=== PATIENT | male | born 1945 | race Hispanic/Latino ===

== ENCOUNTER 2018-07-06 10:40 | Inpatient (IN) | payer OTHER ==
[2018-07-06 11:49] LABS: Absolute Lymphocytes (CBC) 1.4 K/uL (0.7-4.9); Absolute Monocytes 0.5 K/uL (0.1-1.3); Absolute Neutrophil 5.7 K/uL (1.8-8.0); Basophils % 0.5 % (0-1.3); Hematocrit 40.3 % (39.6-49.0); Lymphocytes % 18.4 % (15.3-44.8); MPV 10.5 fL (7.6-11.3); Monocytes % 6.2 % (3.3-12.3); RBC Red Blood Cell Count 4.54 M/uL (4.33-5.43)
--- NOTE | 2018-07-06 11:53 | RAD REPORT ---
EXAM DESCRIPTION: CT - Head Brain Wo Cont - 07/06/2018 11:41 am CLINICAL HISTORY: aphasia COMPARISON: 2010 TECHNIQUE: Computed axial tomography of the head was obtained. IV contrast was not requested. All CT scans are performed using dose optimization technique as appropriate and may include automated exposure control or mA/KV adjustment according to patient size. FINDINGS: An intracranial bleed is not seen . The ventricles are normal in caliber. No extra-axial fluid collection is noted. 1 centimeter low-density area has developed within left aspect of the hema. 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 Mild low-density areas within periventricular and deep white matter likely ischemic changes secondary small vessel disease Fluid within the sinuses/ mastoids is not seen. IMPRESSION: 1 centimeter low-density area within the left aspect of the hema consistent with an infa rct. Age is indeterminate. If clinically indicated further evaluation with MRI could be obtained
[2018-07-06 12:00] LABS: BUN Blood Urea Nitrogen 18 mg/dL (7-18); Bicarbonate 30 mmol/L (21-32); Glucose Level 219 mg/dL (74-106); Potassium 5.1 mmol/L (3.5-5.1); Sodium Level 141 mmol/L (136-145); Troponin (Emerg Dept Use Only) < 0.02 ng/mL (0.0-0.045)
[2018-07-06] MEDS ORDERED: NA CHLORIDE 0.9% 500 ML ONE (12:02)
[2018-07-06 12:04] LABS: Magnesium 1.4 mg/dL (1.8-2.4)
--- NOTE | 2018-07-06 12:47 | ER ---
Nurse's Notes [facility] Name: Dajuan Estrada Age: 73 yrs Sex: Male : 1945 Arrival Date: 07/06/2018 Time: 10:44 Bed 18 Private MD: Jadon Jackson E Diagnosis: Subacute ischemic stroke Presentation: 07/06 10:49 Presenting complaint: Patient states: On Monday morning, noticed some numbness to left sg side of face and had trouble speaking with weakness reports the symptoms improved, but feeling weak still this morning. Transition of care: patient was not received from another setting of care. No acute neurological deficit is noted. Pre-hospital glucose is not applicable to this patient. Onset of symptoms was July 06, 2018. Risk Assessment: Do you want to hurt yourself or someone else? Patient reports no desire to harm self or others. Initial Sepsis Screen: Does the patient meet any 2 criteria? No. Patient's initial sepsis screen is negative. Does the patient have a suspected source of infection? No. Patient's initial sepsis screen is negative. Care prior to arrival: None. 10:49 Method Of Arrival: Ambulatory sg 10:49 Acuity: DARIA 3 sg Triage Assessment: 10:49 The onset of the patients symptoms was more than six hours ago. General: Appears in no sg apparent distress. comfortable, well groomed, well developed, well nourished, Behavior is calm, cooperative, appropriate for age. Pain: Denies pain. Neuro: Level of Consciousness is awake, alert, obeys commands, Oriented to person, place, time, situation, Industrial Ecology Technician are equal bilaterally Moves all extremities. Full function Gait is steady, Speech is normal, Facial symmetry appears normal, Pupils are PERRLA, Reports weakness. Stroke Activation: Symptom onset > 6 hours Physician: Stroke Attending; Name: ; Notified At: ; Arrived At: Physician: Chief Stroke Resident; Name: ; Notified At: ; Arrived At: Physician: Stroke Resident; Name: ; Notified At: ; Arrived At: Physician: ED Attending; Name: ; Notified At: ; Arrived At: Physician: ED Resident; Name: ; Notified At: ; Arrived At: Historical: - Allergies: 10:54 No Known Allergies; sg - Home Meds: 10:54 lisinopril Oral [Active]; Metformin Oral [Active]; atorvastatin oral oral [Active]; sg - PMHx: 10:54 Diabetes - NIDDM; High Cholesterol; Hypertension; sg - PSHx: 10:54 prostate; sg - Immunization history:: Adult Immunizations up to date. - Social history:: Smoking status: Patient/guardian denies using tobacco. - Ebola Screening: : Patient negative for fever greater than or equal to 101.5 degrees Fahrenheit, and additional compatible Ebola Virus Disease symptoms Patient denies exposure to infectious person Patient denies travel to an Ebola-affected area in the 21 days before illness onset No symptoms or risks identified at this time. - Family history:: not pertinent. - Hospitalizations: : No recent hospitalization is reported. Screenin:49 VAN Screening: Arm Drift: Patient shows no arm weakness. Patient is VAN negative. sg 11:00 Abuse screen: Denies threats or abuse. Denies injuries from another. Nutritional jl7 screening: No deficits noted. Tuberculosis screening: No symptoms or risk factors identified. Fall Risk IV access (20 points). Assessment: 11:00 VAN Scoring: Arm Drift: Patients demonstrates NO arm weakness. Patient is VAN Negative. jl7 The patient has not been NPO before screening. The patient is currently on the following diet: Regular The patient is alert, and able to follow commands. The patient does not exhibit slurred or garbled speech. The patient is not exhibiting difficulty speaking. The patient does not exhibit difficulty understanding words. The patient is able to swallow own secretions with no drooling or need for suction. Patient tolerated one teaspoon of water. No drooling, immediate coughing, gurgling, or clearing of the throat was noted. The patient tolerated 90mL of water. No drooling, immediate coughing, gurgling, or clearing of the throat was noted. The patient passed the bedside swallow screening. Oral medications may be given as ordered. Contact Physician for further diet orders. Provider notified of bedside swallow screening results: Miguel Angel Delgadillo MD. T-PA (Activase) Screening: Contraindications: Patient reports onset of signs and symptoms of stroke greater than 6 hours ago:. 11:00 General: See triage assessment. jl7 12:00 Reassessment: Patient appears in no apparent distress at this time. No changes from jl7 previously documented assessment. Patient and/or family updated on plan of care and expected duration. Pain level reassessed. Patient is alert, oriented x 3, equal unlabored respirations, skin warm/dry/pink. Patient denies pain at this time. 13:39 Reassessment: Patient appears in no apparent distress at this time. Patient and/or jl7 family updated on plan of care and expected duration. Pain level reassessed. Patient is alert, oriented x 3, equal unlabored respirations, skin warm/dry/pink. pt returned from radiology. 15:00 Reassessment: Patient appears in no apparent distress at this time. No changes from jl7 previously documented assessment. Patient and/or family updated on plan of care and expected duration. Pain level reassessed. Patient is alert, oriented x 3, equal unlabored respirations, skin warm/dry/pink. Patient denies pain at this time. 15:10 Reassessment: Dr. Cortez at bedside discussing plan of care. jl7 Vital Signs: 10:51 BP 150 / 66; Pulse 87; Resp 17; Temp 98.6; Pulse Ox 98% ; Weight 77.11 kg; Height 5 ft. sg 8 in. (172.72 cm); Pain 0/10; 13:39 BP 184 / 77; Pulse 59; Resp 16; Pulse Ox 98% ; Pain 0/10; jl7 14:12 BP 177 / 94; Pulse 64; Resp 16 S; Pulse Ox 100% on R/A; jl7 15:10 BP 163 / 84; Pulse 60; Resp 16 S; Pulse Ox 100% on R/A; jl7 10:51 Body Mass Index 25.85 (77.11 kg, 172.72 cm) sg NIH Stroke Scale Scores: 11:00 NIHSS Score: 0 [facility] ED Course: 10:44 Patient arrived in ED. mr 10:45 Jadon Jackson MD is Private Physician. mr 10:49 Arm band placed on. sg 10:51 Triage completed. sg 11:00 Patient has correct armband on for positive identification. Placed in gown. Bed in low jl7 position. Call light in reach. Side rails up X 1. monitoring tech on. Pulse ox on. NIBP on. Warm blanket given. 11:19 Elias Slater, ANIL is Primary Nurse. jl7 11:19 Miguel Angel Delgadillo MD is Attending Physician. rn 11:40 CT Head Brain wo Cont In Process Unspecified. EDMS 11:59 EKG done, by eeg tech. reviewed by Miguel Angel Delgadillo MD. at1 12:46 Omaira Cortez MD is Hospitalizing Provider. rn 13:13 MRA Neck W/Wo Cont In Process Unspecified. EDMS 13:13 Brain W/Wo Cont In Process Unspecified. EDMS 13:14 MRA Head Wo Cont In Process Unspecified. EDMS 15:25 No provider procedures requiring assistance completed. Patient admitted, IV remains in 7 place. intact, No redness/swelling at site. Administered Medications: 11:50 Drug: NS 0.9% 500 ml Route: IV; Rate: bolus; Site: right antecubital; jl7 12:30 Follow up: IV Status: Completed infusion; IV Intake: 500ml jl7 13:30 Drug: Magnesium Sulfate 1 grams Route: IVPB; Infused Over: 1 hrs; Site: right jl7 antecubital; 14:43 Follow up: Response: No adverse reaction; IV Status: Completed infusion jl7 13:46 Drug: Aspirin Chewable Tablet 324 mg Route: PO; jl7 14:13 Follow up: Response: No adverse reaction jl Intake: 12:30 IV: 500ml; Total: 500ml. jl Outcome: 12:46 Decision to Hospitalize by Provider. rn 15:25 Admitted to Med/surg accompanied by tech, family with patient, via wheelchair, room [facility] 419, with chart, Report called to ANIL Matute 15:25 Condition: stable 15:25 Discharge instructions given to patient, family, Instructed on the need for admit, Demonstrated understanding of instructions. 15:26 Patient left the ED. [facility] NIH Stroke Scale - NIH Stroke Score Date: 07/06/2018 Time: 11:00 Total Score = 0 1a. Level of Consciousness (LOC) - 0(Alert) 1b. Level of Consciousness (LOC) (Year \T\ Age) - 0(Both) 1c. LOC Commands (Open \T\ Closes Eyes/Jig Operator) - 0(Both) 2. Best Gaze (Lateral Gaze Paresis) - 0(Normal) 3. Visual Field Loss - 0(No visual loss) 4. Facial Palsy - 0(Normal) 5a. Left Arm: Motor (10-second hold) - 0(No drift) 5b. Right Arm: Motor (10-second hold) - 0(No drift) 6a. Left Leg: Motor (5-second hold - always test supine) - 0(No drift) 6b. Right Leg: Motor (5-second hold - always test supine) - 0(No drift) 7. Limb Ataxia (finger/nose \T\ heel/reed - test with eyes open) - 0(Absent) 8. Sensory Loss (pinprick arms/legs/face) - 0(Normal) 9. Best Language: Aphasia (description/naming/reading) - 0(No aphasia) 10. Dysarthria (speech clarity - read or repeat words) - 0(Normal) 11. Extinction and Inattention (visual/tactile/auditory/spatial/personal) - 0(No abnormality) Initials: jl7 Signatures: Dispatcher [employer] Darinel Yoo, RN Azul Mayberry Roman, MD MD rn Gonzales, Amanda, injection molding machine setter EKG Tat1 Elias Slater RN RN jl7
--- NOTE | 2018-07-06 12:48 | EDPHYS ---
Physician Documentation [facility] Name: Dajuan Estrada Age: 73 yrs Sex: Male : 1945 Arrival Date: 07/06/2018 Time: 10:44 Bed 18 Private MD: Jadon Jackson E ED Physician Miguel Angel Delgadillo HPI: 07/06 12:10 This 73 yrs old Male presents to ER via Ambulatory with complaints of Trouble rn Talking, Weakness. 12:10 The patient presents to the emergency department with weakness of the a speech insulator technician higher order brain function problem, difficult walking. Onset: The symptoms/episode began/occurred 5 day(s) ago. Associated signs and symptoms: Pertinent positives: weakness, Pertinent negatives: altered mental status, syncope, double vision, visual field changes, loss of vision. Severity of symptoms: At their worst the symptoms were mild in the emergency department the symptoms are unchanged. The patient has not experienced similar symptoms in the past. Reports Monday began with trouble speaking, trouble walking, lower ext weakness, have improved a little but not gone completely.. Historical: - Allergies: 10:54 No Known Allergies; sg - Home Meds: 10:54 lisinopril Oral [Active]; Metformin Oral [Active]; atorvastatin oral oral [Active]; sg - PMHx: 10:54 Diabetes - NIDDM; High Cholesterol; Hypertension; sg - PSHx: 10:54 prostate; sg - Immunization history:: Adult Immunizations up to date. - Social history:: Smoking status: Patient/guardian denies using tobacco. - Ebola Screening: : Patient negative for fever greater than or equal to 101.5 degrees Fahrenheit, and additional compatible Ebola Virus Disease symptoms Patient denies exposure to infectious person Patient denies travel to an Ebola-affected area in the 21 days before illness onset No symptoms or risks identified at this time. - Family history:: not pertinent. - Hospitalizations: : No recent hospitalization is reported. ROS: 12:10 Constitutional: Negative for fever, chills, and weight loss, Eyes: Negative for injury, rn pain, redness, and discharge, Neck: Negative for injury, pain, and swelling, Cardiovascular: Negative for chest pain, palpitations, and edema, Respiratory: Negative for shortness of breath, cough, wheezing, and pleuritic chest pain, Abdomen/GI: Negative for abdominal pain, nausea, vomiting, diarrhea, and constipation, MS/Extremity: Negative for injury and deformity, Skin: Negative for injury, rash, and discoloration, Neuro: Negative for headache, numbness, tingling, and seizure. Exam: 12:10 Constitutional: This is a well developed, well nourished patient who is awake, alert, rn and in no acute distress. Head/Face: Normocephalic, atraumatic. Eyes: Pupils equal round and reactive to light, extra-ocular motions intact. Lids and lashes normal. Conjunctiva and sclera are non-icteric and not injected. Cornea within normal limits. Periorbital areas with no swelling, redness, or edema. ENT: MMM Cardiovascular: Regular rate and rhythm, No pulse deficits. Respiratory: No increased work of breathing, no retractions or nasal flaring. Abdomen/GI: soft, non-tender MS/ Extremity: Pulses equal, no cyanosis. Neurovascular intact. Full, normal range of motion. Equal circumference. Neuro: Awake and alert, GCS 15, oriented to person, place, time, and situation. Cranial nerves II-XII grossly intact. Motor strength 5/5 in all extremities. Sensory grossly intact. Mild slurred speech, slow and wide based gait. Vital Signs: 10:51 BP 150 / 66; Pulse 87; Resp 17; Temp 98.6; Pulse Ox 98% ; Weight 77.11 kg; Height 5 ft. sg 8 in. (172.72 cm); Pain 0/10; 13:39 BP 184 / 77; Pulse 59; Resp 16; Pulse Ox 98% ; Pain 0/10; jl7 14:12 BP 177 / 94; Pulse 64; Resp 16 S; Pulse Ox 100% on R/A; jl7 15:10 BP 163 / 84; Pulse 60; Resp 16 S; Pulse Ox 100% on R/A; jl7 10:51 Body Mass Index 25.85 (77.11 kg, 172.72 cm) NIH Stroke Scale Scores: 11:00 NIHSS Score: 0 jl7 MDM: 11:20 Patient medically screened. rn 12:45 Data reviewed: vital signs, nurses notes, lab test result(s), EKG, radiologic studies, rn CT scan, and as a result, I will admit patient. Counseling: I had a detailed discussion with the patient and/or guardian regarding: the historical points, exam findings, and any diagnostic results supporting the discharge/admit diagnosis, lab results, radiology results, the need for further work-up and treatment in the hospital. Admission orders: after a detailed discussion of the patient's condition and case, the admit orders are written by me. ED course: Will admit for stroke w/u, ct shows hema lesion, admitted to Dr. Cortez. . 07/06 11:27 Order name: Magnesium; Complete Time: 12: rn 07/06 11:27 Order name: Troponin (emerg Dept Use Only); Complete Time: 12: rn 07/06 11:27 Order name: Basic Metabolic Panel; Complete Time: 12: rn 07/06 11:27 Order name: CBC with Diff; Complete Time: 12: rn 07/06 13:52 Order name: Urine Dipstick--Ancillary (enter results) eb 07/06 14:01 Order name: RPR EDLA 07/06 11:27 Order name: CT Head Brain wo Cont; Complete Time: 12: rn 07/06 12:47 Order name: MRA Neck W/Wo Cont; Complete Time: 13:44 EDLA 07/06 12:47 Order name: Brain W/Wo Cont; Complete Time: 13:44 EDLA 07/06 13:14 Order name: MRA Head Wo Cont; Complete Time: 13:44 EDLA 07/06 14:00 Order name: Carotid Artery Bilateral EDLA 07/06 14:01 Order name: Echo with Doppler EDLA 07/06 14:01 Order name: Sedimentation Rate, W[place]gren [facility] 07/06 11:27 Order name: EKG; Complete Time: 11:27 rn 07/06 11:27 Order name: Accucheck; Complete Time: 12: rn 07/06 11:27 Order name: Cardiac monitoring; Complete Time: 12: rn 07/06 11:27 Order name: EKG - Nurse/Tech; Complete Time: 12: rn 07/06 11:27 Order name: IV Saline Lock; Complete Time: 12: rn 07/06 11:27 Order name: Labs collected and sent; Complete Time: 12: rn 07/06 11:27 Order name: NPO; Complete Time: 12: rn 07/06 11:27 Order name: O2 Per Protocol; Complete Time: 12:07 rn 07/06 14:00 Order name: Occupational Therapy Consult [facility] 07/06 14:00 Order name: CONS Physician Consult [facility] 07/06 14:00 Order name: Physical Therapy Consult [facility] 07/06 14:00 Order name: Speech Therapy Consult [facility] 07/06 14:00 Order name: Heart Healthy [facility] 07/06 11:27 Order name: O2 Sat Monitoring; Complete Time: 12:07 rn Administered Medications: 11:50 Drug: NS 0.9% 500 ml Route: IV; Rate: bolus; Site: right antecubital; jl7 12:30 Follow up: IV Status: Completed infusion; IV Intake: 500ml jl7 13:30 Drug: Magnesium Sulfate 1 grams Route: IVPB; Infused Over: 1 hrs; Site: right jl7 antecubital; 14:43 Follow up: Response: No adverse reaction; IV Status: Completed infusion jl7 13:46 Drug: Aspirin Chewable Tablet 324 mg Route: PO; jl7 14:13 Follow up: Response: No adverse reaction jl7 Disposition: 07/06/18 12:46 Hospitalization ordered by Omaira Cortez for Inpatient Admission. Preliminary diagnosis is Subacute ischemic stroke. - Bed requested for Telemetry/MedSurg (Inpatient). - Status is Inpatient Admission. jl7 - Condition is Stable. - Problem is new. - Symptoms are unchanged. UTI on Admission? No NIH Stroke Scale - NIH Stroke Score Date: 07/06/2018 Time: 11:00 Total Score = 0 1a. Level of Consciousness (LOC) - 0(Alert) 1b. Level of Consciousness (LOC) (Year \T\ Age) - 0(Both) 1c. LOC Commands (Open \T\ Closes Eyes/General Passenger Agent) - 0(Both) 2. Best Gaze (Lateral Gaze Paresis) - 0(Normal) 3. Visual Field Loss - 0(No visual loss) 4. Facial Palsy - 0(Normal) 5a. Left Arm: Motor (10-second hold) - 0(No drift) 5b. Right Arm: Motor (10-second hold) - 0(No drift) 6a. Left Leg: Motor (5-second hold - always test supine) - 0(No drift) 6b. Right Leg: Motor (5-second hold - always test supine) - 0(No drift) 7. Limb Ataxia (finger/nose \T\ heel/reed - test with eyes open) - 0(Absent) 8. Sensory Loss (pinprick arms/legs/face) - 0(Normal) 9. Best Language: Aphasia (description/naming/reading) - 0(No aphasia) 10. Dysarthria (speech clarity - read or repeat words) - 0(Normal) 11. Extinction and Inattention (visual/tactile/auditory/spatial/personal) - 0(No abnormality) Initials: jl7 Signatures: Dispatcher [employer] [facility] Angelia Augustine, RN RN Darinel Evangelista, RN RN Miguel Angel Howell MD MD rn Leal, Jahala, RN RN jl7 Corrections: (The following items were deleted from the chart) 13:13 11:42 Stroke Protocol ordered. [facility] 14:49 12:46 Hospitalization Ordered by Omaira Cortez MD for Inpatient Admission. dw Preliminary diagnosis is Subacute ischemic stroke. Bed requested for Telemetry/MedSurg (Inpatient). Status is Inpatient Admission. Condition is Stable. Problem is new. Symptoms are unchanged. UTI on Admission? No. rn 15:26 14:49 07/06/2018 12:46 Hospitalization Ordered by Omaira Cortez MD for jl7 Inpatient Admission. Preliminary diagnosis is Subacute ischemic stroke. Bed requested for Telemetry/MedSurg (Inpatient). Status is Inpatient Admission. Condition is Stable. Problem is new. Symptoms are unchanged. UTI on Admission? No. dw
--- NOTE | 2018-07-06 13:32 | RAD REPORT ---
EXAM DESCRIPTION: MRI - Brain W/Wo Cont - 07/06/2018 1:22 pm CLINICAL HISTORY: Numbness COMPARISON: July 06, [address] TECHNIQUE: Axial, sagittal, and coronal magnetic images of the brain were obtained. 20 cc MultiHance administered intravenously FINDINGS: A 1.4 centimeter area of abnormal signal within the left aspect of the hema near midline i s compatible with an acute infarction. No abnormal enhancement within the brain is seen. An extra-axial fluid collection is not noted. Mild to moderate signal within periventricular, deep and subcortical white matter likely represent is chemic changes secondary to small vessel disease. Small old lacunar infarcts involve the thalami Right maxillary sinusitis. IMPRESSION: 1.4 centimeter acute infarct left aspect of the hema
[2018-07-06] MEDS ORDERED: ASPIRIN 81 MG CHEWABLE TABLET ONE (13:36)
[2018-07-06] MEDS ORDERED: MAGNESIUM SULFATE 1 gm IVPB 1 GM/100 ML BAG IV ONE (13:36)
--- NOTE | 2018-07-06 13:37 | RAD REPORT ---
EXAM DESCRIPTION: MRI - MRA Head Wo Cont - 07/06/2018 1:22 pm CLINICAL HISTORY: Numbness COMPARISON: None. TECHNIQUE: Magnetic resonance angiogram was performed. 3D MIPS reconstruction performed FINDINGS: The A 1 segment of the right anterior cerebral artery is hypoplastic which is a normal henrique iant. origin of the right posterior cerebral artery. Mild narrowing of branches of the right posterior cerebral artery is seen. Left anterior, left and right middle, left posterior cerebral arteries, basilar artery and distal int ernal carotid artery appear unremarkable without a significant stenosis. . An aneurysm is not displayed. IMPRESSION: Mild narrowing of the branches of the right posterior cerebral artery probably chronic.
--- NOTE | 2018-07-06 13:40 | RAD REPORT ---
EXAM DESCRIPTION: MRI - MRA Neck W/Wo Cont - 07/06/2018 1:20 pm CLINICAL HISTORY: TIA COMPARISON: None. TECHNIQUE: Magnetic resonance angiogram of the neck was performed. 19 cc MultiHance was administered intravenously. 3D MIPS reconstruction performed FINDINGS: Mild plaque is present within the common, internal and external carotid arteries. An aneurysm is not seen. The vertebral arteries are codominant without visualization of an abnormality. IMPRESSION: Mild plaque within the carotid arteries. A significant abnormality is not displayed NASCET criteria used. Mild 0-49% stenosis Moderate 50-69% stenosis Severe 70-99% stenosis
[2018-07-06 14:14] LABS: Urine Blood NEGATIVE (NEG); Urine Glucose NEGATIVE (NEG); Urine Protein NEGATIVE (NEG)
[2018-07-06 15:16] LABS: RPR Titer ND
--- NOTE | 2018-07-06 15:21 | RAD REPORT ---
EXAM DESCRIPTION: USCarotid Artery Bilateral07/06/2018 3:01 pm CLINICAL HISTORY: Numbness COMPARISON: None FINDINGS: The velocity of the right internal carotid artery equals 85 cm/sec. The right ICA/CCA rati o 1.3 The velocity of the left internal carotid artery equals 104 cm/sec. The left ICA/CCA ratio 1.2 Mild plaque is present within the carotid arteries. The vertebral arteries demonstrate antegrade flow IMPRESSION: Mild plaque within the carotid arteries without evidence of a hemodynamically significan t stenosis NASCET criteria used. Mild 0-49% stenosis Moderate 50-69% stenosis Severe 70-99% stenosis
[2018-07-06] MEDS ORDERED: ONDANSETRON 4 MG/2 ML VIAL IV PRN (15:22)
--- NOTE | 2018-07-06 15:30 | P.HP ---
Certification for Inpatient Patient admitted to: Inpatient With expected LOS: >2 Midnights Patient will require the following post-hospital care: None Practitioner: I am a practitioner with admitting privileges, knowledge of patient current condition, hospital course, and medical plan of care. Services: Services provided to patient in accordance with Admission requirements found in Title 42 Section 412.3 of the Code of Federal Regulations Patient History Date of Service: 07/06/18 Primary Care Provider: Dr Jackson History of Present Illness: 73-year-old male with significant past medical history of diabetes, hypertension , previous CVA who presented to the ED complaining of having dysarthria, difficulty writing, and unsteady gait that started about 5 days ago on Monday. Patient stated that he was in his usual state of health until his noticed that he was having difficulty talking and writing sentences. Patient tried to get up from his couch would not able to get up and was having unsteady gait and thus the asked to sit back down. Patient stated that he tried to sleep it off over the weekend however his symptoms did not improve and thus he decided to come to the ER for further workup. Allergies No Known Drug Allergies Allergy (Unverified 03/18/14 17:37) Unknown Home Medications: Lisinopril [Prinivil*] 20 mg PO DAILY 03/15/14 Atorvastatin Calcium 1 tab PO BEDTIME 07/06/18 Metformin HCl 1,000 mg PO BID 07/06/18 Nateglinide [Starlix*] 1 tab PO BID 07/06/18 - Past Medical/Surgical History Diabetic: Yes -: NIDDM -: HTN -: Hyperlipidemia -: sx on left foot after needle pucture -: Willis Cataract sx - Family History Father -: Heart disease - Social History Alcohol use: No CD- Drugs: No Caffeine use: No Review of Systems 10-point ROS is otherwise unremarkable Physical Examination - Physical Exam General: Alert, In no apparent distress HEENT: Atraumatic, PERRLA, Mucous membr. moist/pink, EOMI, Sclerae nonicteric Neck: Supple, 2+ carotid pulse no bruit, No LAD, Without JVD or thyroid abnormality Respiratory: Clear to auscultation bilaterally, Normal air movement Cardiovascular: Regular rate/rhythm, Normal S1 S2 Gastrointestinal: Normal bowel sounds, No tenderness Musculoskeletal: No tenderness Integumentary: No rashes Neurological: Normal speech, Normal strength at 5/5 x4 extr, Normal tone, Abnormal gait Lymphatics: No axilla or inguinal lymphadenopathy - Studies Laboratory Data (last 24 hrs) 07/06/18 11:34: WBC 7.8, Hgb 13.8, Hct 40.3, Plt Count 296 07/06/18 11:34: Sodium 141, Potassium 5.1, BUN 18, Creatinine 1.07, Glucose 219 H, Magnesium 1.4 L* Assessment and Plan - Problems (Diagnosis) (1) Acute CVA (cerebrovascular accident) Current Visit: Yes Status: Acute Plan: Acute Right sided CVA in the hema. Onset of symptoms 5 days ago with Difficulty. -Brain MRI, Neck MRA + for Right Sided CVA in hema -Consulted PT/OT and Speech -neurology consulted. Awaiting reccs -Started ASA, Plavix and lipitor -Will monitor for next 24 to 48 hrs -Possible placement to SNF vs rehab depending on the evaluation (2) HTN (hypertension) Current Visit: Yes Status: Chronic Plan: BP controlled. -Restart Home Lisinopril Qualifiers: Hypertension type: essential hypertension Qualified Code(s): I10 - Essential (primary) hypertension (3) Diabetes Current Visit: Yes Status: Chronic Plan: ISS and accu checks -BS is WNL Qualifiers: Diabetes mellitus type: type 2 Diabetes mellitus complication status: without complication (4) H/O: CVA (cerebrovascular accident) Current Visit: Yes Status: Chronic Plan: h/o CVA in the past without any residual Discharge Plan: Home Plan to discharge in: Greater than 2 days - Advance Directives Does patient have a Living Will: No Does patient have a Durable POA for Healthcare: No - Code Status/Comfort Care Code Status Assessed: Yes Critical Care: No
[2018-07-06] MEDS ORDERED: D50W 25 GM/50 ML SYRINGE IV PRN (15:31)
[2018-07-06] MEDS ORDERED: GLUCAGON 1 MG/VIAL IM PRN (15:31)
[2018-07-06 15:36] VITALS: BMI 25.8
[2018-07-06] MEDS: INSULIN -REGULAR HUMAN 50 UNIT/0.5 ML ML SQ SCH ×2 (16:15→21:39)
[2018-07-06] MEDS: LISINOPRIL 20 MG TAB PO SCH (16:46)
[2018-07-06] MEDS ORDERED: Magnesium Sulfate 2gm IVPB 2 G/50 ML BAG IV ONE (17:00)
--- NOTE | 2018-07-06 17:12 | ECHO ---
HEIGHT: 5 ft 8 in WEIGHT: 170 lb 0 oz DATE OF STUDY: 07/06/[address]: Omaira Cortez MD 2-DIMENSIONAL: YES M.MODE: YES DOPPLER: YES COLOR FLOW: YES TDS: PORTABLE: DEFINITY: BUBBLE STUDY: DIAGNOSIS: ACUTE CVA CARDIAC HISTORY: CATHERIZATION: NO SURGERY: NO PROSTHETIC VALVE: NO PACEMAKER: NO MEASUREMENTS (cm) DIASTOLIC (NORMALS) SYSTOLIC (NORMALS) IVSd 1.0 (0.6-1.2) LA Diam 4.4 (1.9-4.0) LVEF 56% LVIDd 4.1 (3.5-5.7) LVIDs 2.9 (2.0-3.5) %FS 29% LVPWd 1.0 (0.6-1.2) Ao Diam 2.7 (2.0-3.7) 2 DIMENSIONAL ASSESSMENT: RIGHT ATRIUM: NORMAL LEFT ATRIUM: DILATED RIGHT VENTRICLE: NORMAL LEFT VENTRICLE: NORMAL TRICUSPID VALVE: NORMAL MITRAL VALVE: NORMAL PULMONIC VALVE: NORMAL AORTIC VALVE: SCLEROSIS PERICARDIAL EFFUSION: NONE AORTIC ROOT: NORMAL LEFT VENTRICULAR WALL MOTION: NORMAL DOPPLER/COLOR FLOW: MILD AORTIC REGURGITATION, MITRAL REGURGITATION AND TRICUSPID REGURGITATION. NORMAL RIGHT VENTRICULAR SYSTOLIC PRESSURE. NO AORTIC STENOSIS. COMMENTS: NORMAL LEFT VENTRICULAR EJECTION FRACTION. DILATED LEFT ATRIUM. AORTIC SCLEROSIS WITH NO AORTIC STENOSIS. MILD AORTIC REGURGITATION, MITRAL REGURGITATION, AND TRICUSPID REGURGITATION. TECHNOLOGIST: HITESH BELCHER
[2018-07-06 20:55] LABS: RPR (Rapid Plasma Reagin) NON-REACT (NON-REACT)
[2018-07-06] MEDS: ATORVASTATIN 40 MG TAB PO SCH (21:41)
[2018-07-07 06:01] LABS: Absolute Lymphocytes (CBC) 1.1 K/uL (0.7-4.9); Absolute Monocytes 0.6 K/uL (0.1-1.3); Absolute Neutrophil 5.1 K/uL (1.8-8.0); Basophils % 0.6 % (0-1.3); Hematocrit 35.3 % (39.6-49.0); Lymphocytes % 15.9 % (15.3-44.8); MPV 10.3 fL (7.6-11.3)
[2018-07-07 06:29] LABS: Albumin 3.5 g/dL (3.4-5.0); Bilirubin Total 0.3 mg/dL (0.2-1.0); Magnesium 1.7 mg/dL (1.8-2.4); Phosphorus 3.2 mg/dL (2.5-4.9); Potassium 4.5 mmol/L (3.5-5.1); Protein, Total 6.6 g/dL (6.4-8.2); Thyroid Stimulating Hormone 1.56 uIU/mL (0.360-3.740)
[2018-07-07] MEDS: INSULIN -REGULAR HUMAN 50 UNIT/0.5 ML ML SQ SCH ×4 (08:33→21:44)
[2018-07-07] MEDS: CLOPIDOGREL 75 MG TABLET PO SCH (08:34)
[2018-07-07] MEDS: ASPIRIN EC 81 MG TAB PO SCH (08:35)
[2018-07-07] MEDS: LISINOPRIL 20 MG TAB PO SCH (08:35)
[2018-07-07] MEDS ORDERED: MAGNESIUM SULFATE 1 gm IVPB 1 GM/100 ML BAG IV ONE (09:00)
--- NOTE | 2018-07-07 12:40 | P.PN ---
Subjective Date of Service: 07/07/18 Primary Care Provider: Dr Jackson Pt seen and examined at bedside with RN. Chart Reviewed. Case DW neurology. Doing well overall. Denies having CP, Fever SOB or any other c/o Review of Systems 10-point ROS is otherwise unremarkable Physical Examination - Vital Signs Temperature: 97.8 F Blood Pressure: 169/69 Pulse: 60 Respirations: 18 Pulse Ox (%): 99 - Physical Exam General: Alert, In no apparent distress HEENT: Atraumatic, PERRLA, EOMI Neck: Supple, JVD not distended Respiratory: Clear to auscultation bilaterally, Normal air movement Cardiovascular: Regular rate/rhythm, Normal S1 S2 Gastrointestinal: Normal bowel sounds, No tenderness Musculoskeletal: No tenderness Integumentary: No rashes Neurological: Normal speech, Normal tone, Normal affect Lymphatics: No axilla or inguinal lymphadenopathy - Studies Medications List Reviewed: Yes Assessment And Plan - Current Problems (Diagnosis) (1) Acute CVA (cerebrovascular accident) Current Visit: Yes Status: Acute Plan: Acute Right sided CVA in the hema. Onset of symptoms 5 days ago with Difficulty speaking and writing. -Brain MRI, Neck MRA + for Right Sided CVA in hema -Consulted PT/OT and Speech. Will f.u with Reccs -neurology consulted. Awaiting reccs -Started ASA, Plavix and lipitor -Will monitor for next 24 to 48 hrs -Possible placement to SNF vs rehab depending on the evaluation (2) HTN (hypertension) Current Visit: Yes Status: Chronic Plan: BP controlled. -Restart Home Lisinopril Qualifiers: Hypertension type: essential hypertension Qualified Code(s): I10 - Essential (primary) hypertension (3) Diabetes Current Visit: Yes Status: Chronic Plan: ISS and accu checks -BS is WNL Qualifiers: Diabetes mellitus type: type 2 Diabetes mellitus complication status: without complication (4) H/O: CVA (cerebrovascular accident) Current Visit: Yes Status: Chronic Plan: h/o CVA in the past without any residual Discharge Plan: Home Plan to discharge in: Greater than 2 days - Code Status/Comfort Care Code Status Assessed: Yes Critical Care: No
[2018-07-07] MEDS: ATORVASTATIN 40 MG TAB PO SCH (21:44)
[2018-07-08 06:00] LABS: Absolute Lymphocytes (CBC) 1.5 K/uL (0.7-4.9); Absolute Monocytes 0.6 K/uL (0.1-1.3); Absolute Neutrophil 3.4 K/uL (1.8-8.0); Basophils % 0.7 % (0-1.3); Eosinophils % 3.7 % (0-4.4); Hematocrit 36.1 % (39.6-49.0); Lymphocytes % 25.9 % (15.3-44.8); Monocytes % 10.1 % (3.3-12.3); RBC Red Blood Cell Count 4.07 M/uL (4.33-5.43)
[2018-07-08 06:19] LABS: Albumin 3.5 g/dL (3.4-5.0); Bilirubin Total 0.4 mg/dL (0.2-1.0); Magnesium 1.8 mg/dL (1.8-2.4); Phosphorus 3.6 mg/dL (2.5-4.9); Potassium 4.7 mmol/L (3.5-5.1); Protein, Total 6.7 g/dL (6.4-8.2)
[2018-07-08] MEDS ORDERED: MAGNESIUM SULFATE 1 gm IVPB 1 GM/100 ML BAG IV ONE ×2 (06:25→09:00)
[2018-07-08] MEDS: CLOPIDOGREL 75 MG TABLET PO SCH (08:04)
[2018-07-08] MEDS: LISINOPRIL 20 MG TAB PO SCH (08:04)
[2018-07-08] MEDS: ASPIRIN EC 81 MG TAB PO SCH (08:04)
[2018-07-08] MEDS: INSULIN -REGULAR HUMAN 50 UNIT/0.5 ML ML SQ SCH ×2 (08:06→11:30)
[2018-07-08 10:31] VITALS: O2SAT 94
--- NOTE | 2018-07-08 11:34 | P.DS ---
Admission Date: 07/06/18 Discharge Date: 07/08/18 Primary Care Provider: Dr Jackson Disposition: ROUTINE DISCHARGE Discharge Condition: GOOD Consultations: Neurology - Problems (1) Acute CVA (cerebrovascular accident) Current Visit: Yes Status: Acute (2) HTN (hypertension) Current Visit: Yes Status: Chronic Qualifiers: Hypertension type: essential hypertension Qualified Code(s): I10 - Essential (primary) hypertension (3) Diabetes Current Visit: Yes Status: Chronic Qualifiers: Diabetes mellitus type: type 2 Diabetes mellitus complication status: without complication (4) H/O: CVA (cerebrovascular accident) Current Visit: Yes Status: Chronic Brief History of Present Illness: 73-year-old male with significant past medical history of diabetes, hypertension , previous CVA who presented to the ED complaining of having dysarthria, difficulty writing, and unsteady gait that started about 5 days ago on Monday. Patient stated that he was in his usual state of health until his noticed that he was having difficulty talking and writing sentences. Patient tried to get up from his couch would not able to get up and was having unsteady gait and thus the asked to sit back down. Patient stated that he tried to sleep it off over the weekend however his symptoms did not improve and thus he decided to come to the ER for further workup. Hospital Course: Overall during the hospital stay patient remained stable Patient was initially admitted to the hospital for acute CVA with onset of symptoms 5 days ago which were difficulty writing, difficulty speaking, and unsteady gait. Patient's brain MRI and head CT was consistent with right-sided CVA and thus hema area. Patient did not have any neurological deficit his speech and writing improved and symptoms completely resolved. Patient had PTOT and speech consulted here in the hospital patient did well overall. Neurology was also consulted who recommended carotid Dopplers along with other lab work which was all done here in the hospital and patient had within normal limits results. Patient had echocardiogram pending however family wanted patient to be discharged home and have follow up with cardiology outpatient. Patient was educated extensively on the need to continue taking aspirin Plavix and statin along with all other home medication. Patient was asked to follow up with cardiology outpatient and thus was discharged home under stable condition. Neurology agreed with the plan and thus patient was given instructions on preventing strokes in the future with diet and exercise along with medications. Vital Signs/Physical Exam: Temp Pulse Resp BP Pulse Ox 98.0 F 57 18 157/64 H 94 07/08/18 08:00 07/08/18 08:04 07/08/18 08:00 07/08/18 08:04 07/08/18 08:00 General: Alert, In no apparent distress HEENT: Atraumatic, PERRLA, EOMI Neck: Supple, JVD not distended Respiratory: Clear to auscultation bilaterally, Normal air movement Cardiovascular: Regular rate/rhythm, Normal S1 S2 Gastrointestinal: Normal bowel sounds, No tenderness Musculoskeletal: No tenderness Integumentary: No rashes Neurological: Normal speech, Normal tone, Normal affect Lymphatics: No axilla or inguinal lymphadenopathy Laboratory Data at Discharge: WBC 5.8 K/uL (4.3-10.9) D 07/08/18 05:39 Hgb 12.5 g/dL (13.6-17.9) L 07/08/18 05:39 Hct 36.1 % (39.6-49.0) L 07/08/18 05:39 Plt Count 260 K/uL (152-406) 07/08/18 05:39 Sodium 140 mmol/L (136-145) 07/08/18 05:39 Potassium 4.7 mmol/L (3.5-5.1) 07/08/18 05:39 BUN 17 mg/dL (7-18) 07/08/18 05:39 Creatinine 1.00 mg/dL (0.55-1.3) 07/08/18 05:39 Glucose 264 mg/dL (74-106) H 07/08/18 05:39 Phosphorus 3.6 mg/dL (2.5-4.9) 07/08/18 05:39 Magnesium 1.8 mg/dL (1.8-2.4) 07/08/18 05:39 Total Bilirubin 0.4 mg/dL (0.2-1.0) 07/08/18 05:39 AST 6 U/L (15-37) L 07/08/18 05:39 ALT 19 U/L (12-78) 07/08/18 05:39 Alkaline Phosphatase 92 U/L (45-117) 07/08/18 05:39 Triglycerides 148 mg/dL (<150) 07/07/18 05:37 Cholesterol 110 mg/dL (<200) 07/07/18 05:37 HDL Cholesterol 45 mg/dL (40-60) 07/07/18 05:37 Cholesterol/HDL Ratio 2.44 07/07/18 05:37 Home Medications: Lisinopril [Prinivil*] 20 mg PO DAILY 03/15/14 Metformin HCl 1,000 mg PO BID 07/06/18 Nateglinide [Starlix*] 1 tab PO BID 07/06/18 Aspirin [Adult Aspirin] 81 mg PO DAILY #30 tablet. 07/08/18 Atorvastatin Calcium [Lipitor] 40 mg PO BEDTIME #30 tab 07/08/18 Clopidogrel Bisulfate [Plavix*] 75 mg PO DAILY #30 tablet 07/08/18 New Medications: Aspirin [Adult Aspirin] 81 mg PO DAILY #30 tablet. Atorvastatin Calcium [Lipitor] 40 mg PO BEDTIME #30 tab Clopidogrel Bisulfate [Plavix*] 75 mg PO DAILY #30 tablet Patient Discharge Instructions: Please f.u with PCP and Neurology in 1 to 2 weeks post discharge. New medication. ASA. Plavix. Statin Diet: Regular Activity: Ad derrick Followup: Gagan Acosta MD [ASSOCIATE-ACTIVE - CAN ADMIT] - 1 Week (call to schedule appointment)
[2018-07-08 12:22] VITALS: BP 152/71; TEMP 98.2
== END 2018-07-08 11:55 | disposition home or self-care (01) | DRG 66 ==
LOC: ER 10:40 → ERHOLD 13:58 → 4TH 15:14
PROVIDERS: ADMIT Family Medicine; ATTEND Family Medicine
DX: I63.9 Cerebral infarction, unspecified (principal); R47.1 Dysarthria and anarthria; R26.81 Unsteadiness on feet; I10 Essential (primary) hypertension; E11.9 Type 2 diabetes mellitus without complications; Z79.84 Long term (current) use of oral hypoglycemic drugs; Z79.02 Long term (current) use of antithrombotics/antiplatelets; Z79.82 Long term (current) use of aspirin
CPT/HCPCS: 36415; 70450; 70544; 70549; 70553; 80048; 80053; 80061; 81003; 82962; 83735; 84100; 84443; 84484; 85025; 85652; 86592; 92610; 93005; 93306; 93880; 94760; 96361; 96365; 97162; 97167; 99285; A9577; J3475

== ENCOUNTER 2018-07-28 19:55 | Emergency (ER) | payer OTHER ==
[2018-07-28 20:49] LABS: Absolute Lymphocytes (CBC) 1.2 K/uL (0.7-4.9); Absolute Monocytes 0.5 K/uL (0.1-1.3); Absolute Neutrophil 6.4 K/uL (1.8-8.0); Basophils % 0.3 % (0-1.3); Eosinophils % 2.5 % (0-4.4); Hematocrit 36.6 % (39.6-49.0); Lymphocytes % 13.8 % (15.3-44.8); MPV 10.2 fL (7.6-11.3); Monocytes % 6.5 % (3.3-12.3); RBC Red Blood Cell Count 4.03 M/uL (4.33-5.43)
[2018-07-28 20:52] LABS: Protime INR 1.01
[2018-07-28 21:07] LABS: Albumin 3.8 g/dL (3.4-5.0); Bilirubin Direct 0.1 mg/dL (0-0.2); Bilirubin Total 0.3 mg/dL (0.2-1.0); Potassium 4.8 mmol/L (3.5-5.1); Protein, Total 6.9 g/dL (6.4-8.2)
[2018-07-28] MEDS ORDERED: NA CHLORIDE 0.9% 500 ML ONE (21:44)
[2018-07-28 23:17] LABS: Urine Appearance CLOUDY; Urine Bilirubin NEGATIVE (NEG); Urine Blood 3+ (NEG); Urine Color RED; Urine Glucose 2+ (NEG); Urine Protein 2+ (NEG); Urine Specific Gravity >=1.030 (1.005-1.030); Urine Urobilinogen 0.2 mg/dL (0.2-1.0)
[2018-07-28 23:20] LABS: Urine Bacteria <20 /HPF (NONE SEEN); Urine Culture Reflex Order NOT NEEDED; Urine RBC TNTC /HPF (NONE SEEN)
--- NOTE | 2018-07-29 01:05 | EDPHYS ---
Physician Documentation [facility] Name: Dajuan Estrada Age: 73 yrs Sex: Male : 1945 Arrival Date: 07/28/2018 Time: 19:57 Bed 5 Private MD: Jadon Jackson E ED Physician Luigi Martinez HPI: 07/28 20:22 This 73 yrs old Male presents to ER via Ambulatory with complaints of Other, jmm Penile Bleeding. 20:22 The patient presents with urinary symptoms. Onset: The symptoms/episode began/occurred jmm gradually, 2 day(s) ago. This is a 73 year old male with a ghistory of DM, HLP, HTN that presents to the ED with complaints of blood in urine for the past two days. patient denies abdominal pain, denies painful urination, patient denies fever, denies vomiting, denies back pain. . Historical: - Allergies: 20:01 No Known Allergies; la1 - PMHx: 20:01 Diabetes - NIDDM; High Cholesterol; Hypertension; la1 - PSHx: 20:08 prostate sx in 2013; la1 - Immunization history:: Adult Immunizations up to date. - Social history:: Smoking status: Patient/guardian denies using tobacco. - Ebola Screening: : No symptoms or risks identified at this time. ROS: 20:22 Constitutional: Negative for fever, chills, and weight loss, Cardiovascular: Negative jmm for chest pain, palpitations, and edema, Respiratory: Negative for shortness of breath, cough, wheezing, and pleuritic chest pain, Abdomen/GI: Negative for abdominal pain, nausea, vomiting, diarrhea, and constipation. 20:22 : Positive for urinary symptoms, hematuria. 20:22 All other systems are negative. Exam: 20:22 Constitutional: This is a well developed, well nourished patient who is awake, alert, jmm and in no acute distress. Head/Face: atraumatic. Eyes: EOMI, no conjunctival erythema appreciated ENT: Moist Mucus Membranes Neck: Trachea midline, Supple Chest/axilla: Normal chest wall appearance and motion. Cardiovascular: Regular rate and rhythm. No edema appreciated Respiratory: Normal respirations, no respiratory distress appreciated 20:22 Abdomen/GI: Inspection: abdomen appears normal, Bowel sounds: normal, Palpation: abdomen is soft and non-tender, in all quadrants. 20:22 Back: CVA tenderness, is absent, is noted bilaterally. 20:22 : Male external genitalia: blood noted around the glans. 20:22 Musculoskeletal/extremity: ROM: intact in all extremities. 20:22 Skin: Appearance: Color: normal in color. 20:22 Neuro: Orientation: is normal, Mentation: is normal, Memory: is normal. 20:22 Psych: Behavior/mood is pleasant, cooperative. Vital Signs: 20:03 Weight 77.11 kg; Height 5 ft. 8 in. (172.72 cm); Pain 0/10; la1 20:03 Pulse 73; Resp 16; Temp 98.1(TE); Pulse Ox 98% on R/A; la1 20:06 BP 113 / 66; la1 22:04 BP 160 / 70; Pulse 62; Resp 16; Pulse Ox 95% on R/A; mt 22:41 BP 156 / 70; Pulse 70; Resp 18; Pulse Ox 96% on R/A; ea 23:45 BP 155 / 80; Pulse 70; Resp 18; Pulse Ox 99% on R/A; ea 07/29 00:02 BP 171 / 67; Pulse 50; Resp 18; Pulse Ox 99% ; ea 01:36 BP 150 / 70; Pulse 68; Resp 18; Pulse Ox 100% on R/A; ea 01:36 Temp 97.8; ea 07/28 20:03 Body Mass Index 25.85 (77.11 kg, 172.72 cm) la1 MDM: 07/28 20:22 Patient medically screened. [facility] 07/29 01:01 Data reviewed: vital signs. Data interpreted: Pulse oximetry: on room air is 99 %. pm1 Interpretation: normal. 01:02 Counseling: I had a detailed discussion with the patient and/or guardian regarding: the pm1 historical points, exam findings, and any diagnostic results supporting the discharge/admit diagnosis, lab results, radiology results, the need for outpatient follow up, to return to the emergency department if symptoms worsen or persist or if there are any questions or concerns that arise at home. 01:28 ED course: H\T\H stable. V/S Stable. Patient without dizziness, shortness of breath, or pm1 chest pain. Patient able to urinate without difficulty so no indication for huerta placement. Patient will be able to follow up with urology for cystoscopy, PSA test and MRI of prostate. Discussed with patient the possibility of cancer based on bladder wall thickening, painless hematuria, and heterogenous prostate. Patient does have UTI and will give the patient antibiotics. 07/28 20:27 Order name: Basic Metabolic Panel; Complete Time: 21:13 [facility] 07/28 20:27 Order name: CBC with Diff; Complete Time: 21:13 [facility] 07/28 20:27 Order name: Creatinine for Radiology; Complete Time: 21:13 [facility] 07/28 20:27 Order name: Hepatic Function; Complete Time: 21:13 [facility] 07/28 20:27 Order name: Lipase; Complete Time: 21:13 [facility] 07/28 20:27 Order name: PT-INR; Complete Time: 21:13 [facility] 07/28 20:27 Order name: IV Saline Lock; Complete Time: 20:45 [facility] 07/28 20:27 Order name: CT Abd/Pelvis - W/Contrast [facility] 07/28 21:28 Order name: Urine Culture [facility] 07/28 23:17 Order name: Urinalysis W/Microscopic; Complete Time: 23:24 [facility] 07/28 20:27 Order name: Labs collected and sent; Complete Time: 20:45 [facility] 07/28 21:13 Order name: Urine Dipstick-Ancillary (obtain specimen); Complete Time: 22:58 jm Administered Medications: 07/28 21:50 Drug: NS 0.9% 500 ml Route: IV; Rate: bolus; Site: right antecubital; ea 22:40 Follow up: Response: No adverse reaction; IV Status: Completed infusion; IV Intake: ea 500ml 07/29 01:15 Drug: Rocephin 1 grams Route: IV; Rate: calculated rate; Site: right antecubital; ea 01:37 Follow up: Response: No adverse reaction; IV Status: Completed infusion; IV Intake: 10mlea Disposition: 07/29/18 01:04 Discharged to Home. Impression: Hematuria, Urinary tract infection, site not specified, Prostatomegaly. - Condition is Stable. - Discharge Instructions: Hematuria, Adult, Urinary Tract Infection, Adult. - Prescriptions for Bactrim DS 800- 160 mg Oral Tablet - take 1 tablet by ORAL route every 12 hours for 10 days; 20 tablet. - Medication Reconciliation Form, Thank You Letter, Antibiotic Education, Prescription Opioid Use form. - Follow up: Emergency Department; When: As needed; Reason: Worsening of condition. Follow up: Jeffery Rodriges MD; When: 2 - 3 days; Reason: Recheck today's complaints, Continuance of care, Re-evaluation by your physician. - Problem is new. - Symptoms have improved. Addendum: 07/31/2018 01:25 Co-signature as Attending Physician, Luigi Martinez MD. g s Signatures: Dispatcher [employer] EDMD Justin Girard PA PA jmm Attema, Lee, RN RN la1 Fredo Hernandez, CATEGORY DIRECTOR CATEGORY DIRECTOR pm1 Marilyn Rubio RN RN ea Starr, Gregory, MD MD Corrections: (The following items were deleted from the chart) 07/28 23:17 21:28 UA MICROSCOPIC+U.LAB.BRZ ordered. [facility] EDMD 23:17 22:59 URINALYSIS+U.LAB.BRZ ordered. [facility] 07/29 01:27 01:04 07/29/2018 01:04 Discharged to Home. Impression: Hematuria; Urinary tract pm1 infection, site not specified. Condition is Stable. Forms are Medication Reconciliation Form, Thank You Letter, Antibiotic Education, Prescription Opioid Use. Follow up: Emergency Department; When: As needed; Reason: Worsening of condition. Follow up: Jeffery Rodriges; When: 2 - 3 days; Reason: Recheck today's complaints, Continuance of care, Re-evaluation by your physician. Problem is new. Symptoms have improved. pm1 01:45 01:27 07/29/2018 01:04 Discharged to Home. Impression: Hematuria; Urinary tract ea infection, site not specified; Prostatomegaly. Condition is Stable. Discharge Instructions: Hematuria, Adult, Urinary Tract Infection, Adult. Prescriptions for Bactrim DS 800-160 mg Oral Tablet - take 1 tablet by ORAL route every 12 hours for 10 days; 20 tablet. and Forms are Medication Reconciliation Form, Thank You Letter, Antibiotic Education, Prescription Opioid Use. Follow up: Emergency Department; When: As needed; Reason: Worsening of condition. Follow up: Jeffery Rodriges; When: 2 - 3 days; Reason: Recheck today's complaints, Continuance of care, Re-evaluation by your physician. Problem is new. Symptoms have improved. pm1
--- NOTE | 2018-07-29 01:05 | ER ---
Nurse's Notes [facility] Name: Dajuan Estrada Age: 73 yrs Sex: Male : 1945 Arrival Date: 07/28/2018 Time: 19:57 Bed 5 Private MD: Jadon Jackson E Diagnosis: Hematuria;Urinary tract infection, site not specified;Prostatomegaly Presentation: 07/28 20:02 Presenting complaint: Patient states: I am having a lot of blood in my urine since la1 . Pt denies pain, states he can still urinate normally. Transition of care: patient was not received from another setting of care. Onset of symptoms was July 28, 2018. Risk Assessment: Do you want to hurt yourself or someone else? Patient reports no desire to harm self or others. Initial Sepsis Screen: Does the patient meet any 2 criteria? No. Patient's initial sepsis screen is negative. Does the patient have a suspected source of infection? No. Patient's initial sepsis screen is negative. Care prior to arrival: None. 20:02 Method Of Arrival: Ambulatory la1 20:02 Acuity: DARIA 3 la1 Historical: - Allergies: 20:01 No Known Allergies; la1 - PMHx: 20:01 Diabetes - NIDDM; High Cholesterol; Hypertension; la1 - PSHx: 20:08 prostate sx in 2013; la1 - Immunization history:: Adult Immunizations up to date. - Social history:: Smoking status: Patient/guardian denies using tobacco. - Ebola Screening: : No symptoms or risks identified at this time. Screenin:30 Abuse screen: Denies threats or abuse. Nutritional screening: No deficits noted. ea Tuberculosis screening: No symptoms or risk factors identified. Fall Risk None identified. Assessment: 20:15 General: Appears in no apparent distress. Behavior is calm, cooperative, appropriate ea for age. Pain: Denies pain. Neuro: Level of Consciousness is awake, alert, obeys commands, Oriented to person, place, time, situation. Cardiovascular: Patient's skin is warm and dry. Respiratory: Airway is patent Respiratory effort is even, unlabored, Respiratory pattern is regular, symmetrical. : Reports bleeding with urination. Derm: Skin is pink, warm \T\ dry. Musculoskeletal: Circulation, motion, and sensation intact. 21:50 Reassessment: Patient and/or family updated on plan of care and expected duration. Pain ea level reassessed. Patient is alert, oriented x 3, equal unlabored respirations, skin warm/dry/pink. 22:41 Reassessment: Patient and/or family updated on plan of care and expected duration. Pain ea level reassessed. Patient is alert, oriented x 3, equal unlabored respirations, skin warm/dry/pink. Pt reports he will attempt to urinate and press the call light when done. 23:45 Reassessment: Patient and/or family updated on plan of care and expected duration. Pain ea level reassessed. Patient is alert, oriented x 3, equal unlabored respirations, skin warm/dry/pink. 07/29 00:04 Reassessment: Patient and/or family updated on plan of care and expected duration. Pain ea level reassessed. Patient is alert, oriented x 3, equal unlabored respirations, skin warm/dry/pink. Awaiting on CT results. 01:16 Reassessment: Patient and/or family updated on plan of care and expected duration. Pain ea level reassessed. Patient is alert, oriented x 3, equal unlabored respirations, skin warm/dry/pink. Provider at bedside updating pt on plan of care. 01:34 Reassessment: Patient and/or family updated on plan of care and expected duration. Pain ea level reassessed. Patient is alert, oriented x 3, equal unlabored respirations, skin warm/dry/pink. Discharge instructions given to patient, verbalized the understanding of instruction. Vital Signs: 07/28 20:03 Weight 77.11 kg; Height 5 ft. 8 in. (172.72 cm); Pain 0/10; la1 20:03 Pulse 73; Resp 16; Temp 98.1(TE); Pulse Ox 98% on R/A; la1 20:06 BP 113 / 66; la1 22:04 BP 160 / 70; Pulse 62; Resp 16; Pulse Ox 95% on R/A; mt 22:41 BP 156 / 70; Pulse 70; Resp 18; Pulse Ox 96% on R/A; ea 23:45 BP 155 / 80; Pulse 70; Resp 18; Pulse Ox 99% on R/A; ea 07/29 00:02 BP 171 / 67; Pulse 50; Resp 18; Pulse Ox 99% ; ea 01:36 BP 150 / 70; Pulse 68; Resp 18; Pulse Ox 100% on R/A; ea 01:36 Temp 97.8; ea 07/28 20:03 Body Mass Index 25.85 (77.11 kg, 172.72 cm) la1 ED Course: 07/28 19:57 Patient arrived in ED. es 19:58 Jadon Jackson MD is Private Physician. es 20:03 Triage completed. la1 20:03 Arm band placed on left wrist. la1 20:09 Justin Girard PA is PHCP. jmm 20:09 Luigi Martinez MD is Attending Physician. jmm 20:10 Marilyn Rubio RN is Primary Nurse. ea 20:31 Patient has correct armband on for positive identification. Placed in gown. Bed in low ea position. Call light in reach. Side rails up X 1. 20:39 Radiology exam delayed due to lab results not completed at this time. (BUN/Creatinine). eh 20:45 Inserted saline lock: 20 gauge in right antecubital area, using aseptic technique. ea Blood collected. 21:56 CT Abd/Pelvis - W/Contrast In Process Unspecified. EDMS 21:59 PHCP role handed off by Justin Girard PA pm1 21:59 Fredo Hernandez NP is PHCP. pm1 07/29 01:04 Jeffery Rodriges MD is Referral Physician. pm1 01:34 No provider procedures requiring assistance completed. IV discontinued, intact, ea bleeding controlled, No redness/swelling at site. Pressure dressing applied. Administered Medications: 07/28 21:50 Drug: NS 0.9% 500 ml Route: IV; Rate: bolus; Site: right antecubital; ea 22:40 Follow up: Response: No adverse reaction; IV Status: Completed infusion; IV Intake: ea 500ml 07/29 01:15 Drug: Rocephin 1 grams Route: IV; Rate: calculated rate; Site: right antecubital; ea 01:37 Follow up: Response: No adverse reaction; IV Status: Completed infusion; IV Intake: 10mlea Intake: 07/28 22:40 IV: 500ml; Total: 500ml. ea 07/29 01:37 IV: 10ml; Total: 510ml. ea Outcome: 01:04 Discharge ordered by . pm1 01:35 Discharged to home ambulatory, with family. ea 01:35 Condition: stable 01:35 Discharge instructions given to patient, Instructed on discharge instructions, follow up and referral plans. medication usage, Demonstrated understanding of instructions, follow-up care, medications. 01:45 Patient left the ED. ea Signatures: Dispatcher [employer] EDMS Justin Girard PA PA jmm Salyer, Edna es Hagler, Ervin eh Attema, Lee, RN RN la1 Fredo Hernandez NP LEATHER TACKER pm1 Olivia Mac mt, Elena, RN RN ea Corrections: (The following items were deleted from the chart) 00:07 00:04 Reassessment: Patient and/or family updated on plan of care and expected ea duration. Pain level reassessed. Patient is alert, oriented x 3, equal unlabored respirations, skin warm/dry/pink. Awaiting on dispo. ea
[2018-07-29] MEDS ORDERED: CEFTRIAXONE/SWI 1gm 1 GM/10 ML SYR ONE (01:21)
[2018-07-29 02:35] VITALS: BP 150/70; TEMP 97.8; O2SAT 100
--- NOTE | 2018-07-30 10:09 | RAD REPORT ---
EXAM DESCRIPTION: CT - Abdomen Pelvis W Contrast - 07/29/2018 12:59 am CLINICAL HISTORY: 73 years Male hematuria, IV ONLY COMPARISON: None. TECHNIQUE: Contiguous axial images obtained through the abdomen and pelvis following IV contrast. Re formatted images obtained. This exam was performed according to our department optimization program which includes automated exp osure control, adjustment of the mA and/or kv according to patient size and/or use of iterative recon struction technique. FINDINGS: Minimal dependent atelectatic changes. Small hiatal hernia. Coronary artery calcifications. The liver appears unremarkable. The spleen and pancreas appear unremarkable. No adrenal masses. There is a 1.7 cm lower pole right renal cyst. There is mild perinephric stranding which is likely ch ronic. No hydronephrosis or ureteral calculi. The prostate gland is markedly enlarged and is heterogeneous. There is indentation on the urinary boris dder. There is some high density material in the urinary bladder consistent with hemorrhage. There is urinary bladder wall thickening which could be from chronic bladder outlet obstruction. Cystoscopy i s recommended to exclude the possibility of an infiltrating mass lesion. PSA testing or MRI prostate also recommended. The gallbladder is visualized. Atherosclerotic calcifications. No aneurysmal dilatation of the aorta. No bowel obstruction. The appendix appears unremarkable. No significant free pelvic fluid. Degenerative changes in the spine. IMPRESSION: The prostate gland is markedly enlarged and is heterogeneous. Correlation with PSA testi ng or MRI of the prostate is recommended to better evaluate. There is hemorrhage visualized within the urinary bladder. There is urinary bladder wall thickening which could be from chronic bladder outlet obstruction. An i nfiltrating mass lesion is not excluded. Cystoscopy is recommended to better evaluate the urinary boris dder. Other findings as described above. Electronically signed by: Abe Martin MD 07/29/2018 12:53 AM CDT Due to temporary technical issues with the PACS/Fluency reporting system, reports are being signed by the in house radiologist as a courtesy to ensure prompt reporting. The interpreting radiologist is f ully responsible for the content of the report.
== END 2018-07-29 01:45 | disposition home or self-care (01) ==
LOC: ER 19:55
DX: N39.0 Urinary tract infection, site not specified (principal); N40.0 Benign prostatic hyperplasia without lower urinary tract symptoms; E11.9 Type 2 diabetes mellitus without complications; I10 Essential (primary) hypertension; E78.00 Pure hypercholesterolemia, unspecified
CPT/HCPCS: 96365; 96361; 87088; 85025; 81001; 87086; 80048; 36415; 85610; 80076; 83690; 74177; 99284; Q9967; J0696

== ENCOUNTER 2024-06-10 08:58 | Emergency (ER) | payer OTHER ==
[2024-06-10 09:44] LABS: Absolute Basophils 0.1 K/uL (0-0.5); Absolute Eosinophils 0.2 K/uL (0-0.5); Absolute Lymphocytes (CBC) 1.3 K/uL (0.7-4.9); Absolute Monocytes 0.6 K/uL (0.1-1.3); Absolute Neutrophil 4.9 K/uL (1.8-8.0); Basophils % 0.9 % (0-1.3); Eosinophils % 2.8 % (0-4.4); Hematocrit 29.2 % (39.6-49.0); Hemoglobin 9.8 g/dL (13.6-17.9); Lymphocytes % 18.6 % (15.3-44.8); MCH 28.6 pg (27.0-35.0); MCHC 33.7 g/dL (32.0-36.0); MCV 84.7 fL (80-100); MPV 9.6 fL (7.6-11.3); Monocytes % 8.2 % (3.3-12.3); Neutrophils % 69.5 % (41.7-73.7); Nucleated Red Blood Cells % 0.1 % (0-0); Platelets 287 thou/uL (152-406); RBC Red Blood Cell Count 3.44 M/uL (4.33-5.43); Red Cell Distribution Width 16.7 % (12.1-15.2)
[2024-06-10] MEDS ORDERED: NA CHLORIDE 0.9% 1,000 ML ONE (09:49)
[2024-06-10 10:02] LABS: ALT/SGPT 15 U/L (16-61); Albumin 2.9 g/dL (3.4-5.0); Albumin/Globulin Ratio 0.9 (1.1-1.8); Alkaline Phosphatase 84 U/L (45-117); Anion Gap 9.7 mEq/L (5.0-15.0); BUN Blood Urea Nitrogen 40 mg/dL (7-18); Bicarbonate 27 mEq/L (21-32); Bilirubin Total 0.2 mg/dL (0.2-1.0); Globulin 3.2 g/dL (2.3-3.5); Glomerular Filtration Rate 58 ml/min (=/>90); Glucose Level 125 mg/dL (74-106); Lipase 35 U/L (13-75); Potassium 4.7 mEq/L (3.5-5.1); Protein, Total 6.1 g/dL (6.4-8.2); Sodium Level 141 mEq/L (136-145)
[2024-06-10 10:02] LABS: Influenza A Ag Negative; Influenza B Ag Negative; SARS-CoV-2 Antigen Rapid Res Negative (Negative)
[2024-06-10 10:17] LABS: AST/SGOT < 10 U/L (15-37)
--- NOTE | 2024-06-10 10:32 | RAD REPORT ---
EXAMINATION: ONE VIEW CHEST XR CLINICAL INDICATION: AMS TECHNIQUE: Frontal chest projection is submitted. Examination is limited by patient positioning and t echnique. COMPARISON: 03/15/2014 FINDINGS: The lungs are well inflated and clear. The heart is upper limit of normal in size. No displaced fract ures identified. IMPRESSION: No acute intrathoracic abnormalities.
--- NOTE | 2024-06-10 11:25 | RAD REPORT ---
EXAMINATION: CT ABDOMEN AND PELVIS WITH CONTRAST CLINICAL INDICATION: ABD PAIN TECHNIQUE: CT abdomen and pelvis was performed, after the administration of IV contrast, as per depar tment protocol. Axial, sagittal and coronal reconstructions were obtained. One or more of the following dose reduction techniques were used: Automated exposure control, adjustment of the mA and k V according to patient size, and iterative reconstruction. Unless otherwise specified, incidental findings do not require dedicated imaging follow-up. COMPARISON: No prior exam. FINDINGS: LOWER CHEST: The visualized lung bases are clear. LIVER: Normal in size and contour. No focal lesion. Grossly unremarkable gallbladder. SPLEEN: Normal size. No focal lesion. PANCREAS: No mass, ductal dilation, or [place]-pancreatic fluid. ADRENALS: Normal; no mass. KIDNEYS: Normal size and contour. No hydronephrosis. GASTROINTESTINAL TRACT: No evidence of free air, significant intra-abdominal free fluid, bowel obstru ction or abscess. Moderate stool is retained throughout the colon. APPENDIX: Appendix not visualized, but no inflammatory changes in region of appendix. LYMPH NODES: No lymphadenopathy. MUSCULOSKELETAL: Mild multilevel spinal degenerative changes. ADDITIONAL FINDINGS: Significant enlargement of the prostate gland which projects into the urinary bl adder base. IMPRESSION: Significant prostate enlargement projecting into the bladder base. Correlation with PSA levels sugges [place]. Moderate retained stool throughout the colon. No acute process seen elsewhere.
[2024-06-10 12:31] LABS: Specific Gravity 1.015 (1.005-1.030); Sqamous Epithelial None Seen /HPF (None Seen); Urine Bacteria <20 /HPF (<20); Urine Bilirubin NEGATIVE (Negative); Urine Blood 1+ (Negative); Urine Clarity Clear (Clear); Urine Color Light-Yellow (Yellow); Urine Crystals Unidentified Few /HPF (None Seen); Urine Culture Reflex Order NOT NEEDED; Urine Glucose NEGATIVE (Negative); Urine Ketones NEGATIVE (Negative); Urine Microscopic Reflex YN ORDER UMIC; Urine Nitrite NEGATIVE (Negative); Urine Protein 1+ (Negative); Urine RBC <5 /HPF (None Seen); Urine Urobilinogen Normal (Normal); Urine WBC <5 /HPF (<5); Urine pH 5.5 (5.0-7.0)
--- NOTE | 2024-06-10 13:21 | RAD REPORT ---
EXAMINATION: Head Brain Wo Cont CLINICAL INDICATION: Male, 78 years old.AMS TECHNIQUE: Axial CT images from the skull base to the vertex without intravenous contrast. Coronal an d sagittal reformatted images were created from the data set. One or more of the following dose reduction techniques were used: Automated exposure control, adjustment of the mA and/or kV according to patient size, and/or iterative reconstruction. Unless otherwise specified, incidental findings do not require dedicated imaging follow-up. [id number]. COMPARISON: 07/06/2018 FINDINGS: INTRACRANIAL: No acute intracranial hemorrhage. No hydrocephalus. No mass effect or midline shift. Mo derate chronic small vessel ischemic changes.Mild cerebral atrophy. VASCULATURE: Intracranial atherosclerotic changes. SCALP/SKULL: No calvarial fracture identified. No acute soft tissue abnormality. SINUSES: Scattered areas of paranasal sinus thickening. Postoperative changes at the right maxillary sinus with chronic mucoperiosteal thickening. No significant mastoid fluid. IMPRESSION: No acute intracranial abnormality. Chronic small vessel ischemic changes.
--- NOTE | 2024-06-10 13:47 | EDPHYS ---
Physician Documentation [facility] Name: Dajuan Estrada Age: 78 yrs Sex: Male : 1945 Arrival Date: 06/10/2024 Time: 08:58 Bed 6 Private MD: ED Physician Miguel Angel Delgadillo HPI: 06/10 09:39 This 78 yrs old Male presents to ER via EMS with complaints of Wellness check. rn 09:39 The patient presents with decreased mental status, decreased responsiveness. Onset: The rn symptoms/episode began/occurred at an unknown time. Current symptoms: In the emergency department the patient's symptoms have improved. It is unknown whether or not the patient has had similar symptoms in the past. Per EMS a family member called for decreased responsiveness. No known syncope. No known fever. Patient reports has felt sick. Per EMS report patient is on hospice. Family did not give any more information to EMS but when they were leaving the house another daughter came by and reported patient seemed at baseline. Patient unable to give more information. Patient afebrile per EMS with stable vital signs.. Historical: - Allergies: 09:19 No Known Allergies; ss - PMHx: 09:19 Diabetes - NIDDM; High Cholesterol; Hypertension; ss - PSHx: 09:19 Right 3rd toe amputation; prostate sx; ss - Immunization history:: Adult Immunizations unknown. - Social history:: Smoking status: unknown. - Family history:: not pertinent. - Hospitalizations: : No recent hospitalization is reported. ROS: 09:41 Constitutional: Negative for fever, chills, and weight loss, Cardiovascular: Negative rn for chest pain, palpitations, and edema, Respiratory: Negative for shortness of breath, cough, wheezing, and pleuritic chest pain, Abdomen/GI: Negative for vomiting or diarrhea MS/Extremity: Negative for injury and deformity, Neuro: Positive for generalized weakness Exam: 09:41 Constitutional: This is a well developed, well nourished patient who is awake, alert, rn and in no acute distress. ENT: Dry mucous membranes Cardiovascular: Bradycardic, regular Respiratory: No increased work of breathing, no retractions or nasal flaring. Abdomen/GI: Soft, mild mid abdominal tenderness with grimace upon palpation Neuro: Awake, alert, slow to respond. Vital Signs: 09:16 BP 136 / 58; Pulse 52; Resp 16; Temp 97.1(A); Pulse Ox 94% on R/A; Pain 0/10; ss 09:46 BP 136 / 58; Pulse 55; Resp 18; Pulse Ox 98% on R/A; ld1 10:19 BP 136 / 58; Pulse 53; Resp 18; Pulse Ox 97% on R/A; ld1 12:27 BP 169 / 56; Pulse 49; Resp 18; Pulse Ox 95% on R/A; ld1 13:30 BP 176 / 55; Pulse 58; Resp 18; Pulse Ox 97% ; me1 09:16 Pain Scale: Adult ss MDM: 09:04 Medical Screening Exam initiated rn 13:45 Differential Diagnosis: CVA, electrolyte abnormality, hypoglycemia, pneumonia, UTI, rn volume depletion. Data reviewed: vital signs, nurses notes, lab test result(s), radiologic studies, CT scan, plain films, and as a result, I will discharge patient. Counseling: I had a detailed discussion with the patient and/or guardian regarding the historical points, exam findings, and any diagnostic results supporting the discharge/admit diagnosis, lab results, radiology results, the need for outpatient follow up, to return to the emergency department if symptoms worsen or persist or if there are any questions or concerns that arise at home. Special discussion: I discussed with the patient/guardian in detail that at this point there is no indication for admission to the hospital. It is understood, however, that if the symptoms persist or worsen the patient needs to return immediately for re-evaluation. ED course: Patient much more alert after IV fluids. No other acute findings on CT head or abdomen pelvis. Patient has known prostatomegaly for 20 years. No signs of urinary tract infection or prostatitis. Patient talking and smiling and family is comfortable with him going home. I have personally reviewed all of the results, including but not limited to blood tests and imaging deemed necessary to safely discharge this patient at this time. All results given to and printed out for patient. I personally went over all the results with the patient and answered all questions. Patient will follow-up with PCP and or specialist as discussed. Return precautions given and understood.. 06/10 09:10 Order name: CBC with Diff; Complete Time: 10:20 rn 06/10 09:10 Order name: CMP; Complete Time: 10:20 rn 06/10 09:10 Order name: Lipase; Complete Time: 10:20 rn 06/10 09:10 Order name: Urinalysis w/ reflexes; Complete Time: 12:33 rn 06/10 09:10 Order name: COVID-19 Ag + Flu A+B Ag; Complete Time: 10:20 rn 06/10 09:10 Order name: CT Abd/Pelvis - IV Contrast Only; Complete Time: 11:26 rn 06/10 09:10 Order name: XRAY Chest (1 view); Complete Time: 10:35 rn 06/10 12:51 Order name: CT Head Brain wo Cont; Complete Time: 13:22 rn 06/10 09:10 Order name: IV Saline Lock; Complete Time: 09:33 rn 06/10 09:10 Order name: Labs collected and sent; Complete Time: 09:33 rn Administered Medications: 09:45 Drug: NS 0.9% IV 1000 ml IV at 1 bolus Per protocol; to be given as a bolus over 60 ss minutes Route: IV; Rate: 1 bolus; Site: right wrist; 10:45 Follow up: IV Status: Completed infusion; IV Intake: 1000ml ss Disposition Summary: 06/10/24 13:47 Discharge Ordered Notes: Location: Home rn Problem: new rn Symptoms: have improved rn Condition: Stable rn Diagnosis - Dehydration rn - Altered mental status, unspecified rn Followup: rn - With: Private Physician - When: As needed - Reason: Recheck today's complaints, Re-evaluation by your physician Discharge Instructions: - Discharge Summary Sheet rn - Dehydration, Adult rn - Dehydration, Elderly, [id number] rn Forms: - Medication Reconciliation Form rn - Antibiotic travel journalist - Prescription Opioid Use rn - Patient Portal Instructions rn - Leadership Thank You Letter rn Signatures: Dispatcher [employer] EDMS Miguel Angel Delgadillo MD MD rn Blanchard, Shelby, RN RN ss Corrections: (The following items were deleted from the chart) 09:10 09:10 Abdomen Pelvis W Con+CT.RAD.BRZ ordered. EDMS EDMS 09:10 09:10 Chest Single View+RAD.RAD.BRZ ordered. EDKS EDMS 13:46 13:45 ED course: Patient much more alert. rn rn
--- NOTE | 2024-06-10 13:47 | ER ---
Nurse's Notes [facility] Name: Dajuan Estrada Age: 78 yrs Sex: Male : 1945 Arrival Date: 06/10/2024 Time: 08:58 Bed 6 Private MD: Diagnosis: Dehydration;Altered mental status, unspecified Presentation: 06/10 09:16 Chief complaint: EMS states: EMS called out for "in and out of it." Pt is on hospice. ss Unknown whether or not it was a family member or the hospice nurse that called 911. EMS reports that when they were leaving out of the house another daughter arrived stating that patient is at his baseline. Coronavirus screen: Client denies travel out of the [place] in the last 14 days. Ebola Screen: Patient denies exposure to infectious person. Patient denies travel to an Ebola-affected area in the 21 days before illness onset. Initial Sepsis Screen: Does the patient meet any 2 criteria? No. Patient's initial sepsis screen is negative. Does the patient have a suspected source of infection? No. Patient's initial sepsis screen is negative. Risk Assessment: Do you want to hurt yourself or someone else? Patient reports no desire to harm self or others. Onset of symptoms is unknown. 09:16 Method Of Arrival: EMS: [facility] ss 09:16 Acuity: DARIA 3 ss 09:16 Care prior to arrival: IV initiated. 18 GA, in the right wrist, Glucose check: 121. ss Historical: - Allergies: 09:19 No Known Allergies; ss - PMHx: 09:19 Diabetes - NIDDM; High Cholesterol; Hypertension; ss - PSHx: 09:19 Right 3rd toe amputation; prostate sx; ss - Immunization history:: Adult Immunizations unknown. - Social history:: Smoking status: unknown. - Family history:: not pertinent. - Hospitalizations: : No recent hospitalization is reported. Screenin:15 Abuse screen: Denies threats or abuse. Denies injuries from another. Nutritional ss screening: No deficits noted. Tuberculosis screening: Never had TB. Assessment: 09:01 General: Appears comfortable, Behavior is drowsy, quiet, Denies feeling ill. Neuro: ss Level of Consciousness is awake, alert, obeys commands, Oriented to person, place, time, situation. Respiratory: Airway is patent Respiratory effort is even, unlabored, Respiratory pattern is regular, symmetrical. GI: Patient currently denies diarrhea, nausea, vomiting. EENT: Oral mucosa is moist. Throat is clear. Derm: Skin is intact, is healthy with good turgor, Skin is pink, warm \\T\\ dry. normal. 10:17 Reassessment: Patient appears in no apparent distress at this time. Son at bedside. ss 12:30 Reassessment: Cleansed pt of bowl and bladder incontinence. Looking for son at this ss time as he said he would be back shortly. Attempted to call, Left VM. 13:32 Reassessment: Got ahold of sonYury who states he will be here in [address] azeb Delgadillo notified. Vital Signs: 09:16 BP 136 / 58; Pulse 52; Resp 16; Temp 97.1(A); Pulse Ox 94% on R/A; Pain 0/10; ss 09:46 BP 136 / 58; Pulse 55; Resp 18; Pulse Ox 98% on R/A; ld1 10:19 BP 136 / 58; Pulse 53; Resp 18; Pulse Ox 97% on R/A; ld1 12:27 BP 169 / 56; Pulse 49; Resp 18; Pulse Ox 95% on R/A; ld1 13:30 BP 176 / 55; Pulse 58; Resp 18; Pulse Ox 97% ; me1 09:16 Pain Scale: Adult ss ED Course: 09:01 Patient arrived in ED. bd 09:04 Miguel Angel Delgadillo MD is Attending Physician. rn 09:15 Patient has correct armband on for positive identification. Bed in low position. ss 09:19 Triage completed. ss 09:19 Arm band placed on right wrist. ss 09:31 Lisa Vences, RN is Primary Nurse. ss 09:33 COVID-19 Ag + Flu A+B Ag Sent. ss 09:33 CBC with Diff Sent. ss 09:33 CMP Sent. ss 09:33 Lipase Sent. ss 09:33 Urinalysis w/ reflexes Sent. ss 10:16 XRAY Chest (1 view) In Process Unspecified. EDMS 11:08 CT Abd/Pelvis - IV Contrast Only In Process Unspecified. EDMS 13:14 CT Head Brain wo Cont In Process Unspecified. EDMS 14:15 No provider procedures requiring assistance completed. IV discontinued, intact, aa5 bleeding controlled, No redness/swelling at site. Pressure dressing applied. Administered Medications: 09:45 Drug: NS 0.9% IV 1000 ml IV at 1 bolus Per protocol; to be given as a bolus over 60 ss minutes Route: IV; Rate: 1 bolus; Site: right wrist; 10:45 Follow up: IV Status: Completed infusion; IV Intake: 1000ml ss Intake: 10:45 IV: 1000ml; Total: 1000ml. ss Outcome: 13:47 Discharge ordered by . rn 14:15 Discharged to home via wheelchair, with family, aa5 14:15 Condition: good 14:15 Discharge instructions given to patient, family, Instructed on discharge instructions, follow up and referral plans. Demonstrated understanding of instructions, follow-up care, 14:15 Patient left the ED. aa5 Signatures: Dispatcher [employer] Dorota Browning Roman, MD MD rn Calderon, Audri RN RN aa5 Lisa Vences RN RN ss Sims, Lauren RN RN ld1 Sarah Hui, RN RN me1
[2024-06-10 14:20] VITALS: TEMP 97.1
[2024-06-10 14:25] VITALS: BP 176/55; O2SAT 97
== END 2024-06-10 14:15 | disposition home or self-care (01) ==
LOC: ER 08:58
DX: E86.0 Dehydration (principal); Z11.52 Encounter for screening for COVID-19; E11.9 Type 2 diabetes mellitus without complications; I10 Essential (primary) hypertension
CPT/HCPCS: 85025; 81001; 36415; 83690; 80053; 70450; 74177; 71045; 87428; Q9967; J7030; 96360; 99284

== ENCOUNTER 2024-07-09 14:48 | Inpatient (IN) | payer OTHER ==
[2024-07-09] MEDS ORDERED: FAMOTIDINE 20 MG/2 ML VIAL IV ONE (15:22)
[2024-07-09] MEDS ORDERED: FOLIC ACID 5 MG/ML VIAL ONE (15:22)
[2024-07-09] MEDS ORDERED: NA CHLORIDE 0.9% 1,000 ML ONE (15:23)
[2024-07-09 15:41] LABS: PT Prothrombin Time 11.4 SECONDS (10-13.0)
[2024-07-09 15:42] LABS: Absolute Basophils 0.1 K/uL (0-0.5); Absolute Eosinophils 0.1 K/uL (0-0.5); Absolute Lymphocytes (CBC) 0.8 K/uL (0.7-4.9); Absolute Monocytes 0.7 K/uL (0.1-1.3); Absolute Neutrophil 8.3 K/uL (1.8-8.0); Basophils % 0.6 % (0-1.3); Eosinophils % 1.2 % (0-4.4); Hematocrit 30.9 % (39.6-49.0); Hemoglobin 10.5 g/dL (13.6-17.9); Lymphocytes % 8.2 % (15.3-44.8); MCH 29.4 pg (27.0-35.0); MCHC 34.1 g/dL (32.0-36.0); MCV 86.2 fL (80-100); MPV 9.6 fL (7.6-11.3); Monocytes % 6.7 % (3.3-12.3); Neutrophils % 83.3 % (41.7-73.7); Nucleated Red Blood Cells % 0.1 % (0-0); Platelets 261 thou/uL (152-406); RBC Red Blood Cell Count 3.58 M/uL (4.33-5.43); Red Cell Distribution Width 17.1 % (12.1-15.2)
--- NOTE | 2024-07-09 15:53 | RAD REPORT ---
EXAMINATION: Head C Spine Mpr Wo Con CLINICAL INDICATION: Male, 79 years old. TRAUMA TECHNIQUE: Axial CT images from the skull base to the vertex without intravenous contrast. Axial CT i mages through the cervical spine were obtained without intravenous contrast. Sagittal and coronal reformatted images were created from the data set. Coronal and sagittal reformatted images were creat ed from the data set. One or more of the following dose reduction techniques were used: Automated exposure control, adjustment of the mA and/or kV according to patient size, and/or iterative reconstr uction. Unless otherwise specified, incidental findings do not require dedicated imaging follow-up. [id number]. COMPARISON: 06/10/2024 FINDINGS: Head: INTRACRANIAL: No acute intracranial hemorrhage. No hydrocephalus. No mass effect or midline shift. Mi ld chronic small vessel ischemic changes.Mild cerebral atrophy. VASCULATURE: No visualized abnormalities in the arteries or dural venous sinuses. SCALP/SKULL: No calvarial fracture identified. No acute soft tissue abnormality. SINUSES: Chronic mucoperiosteal thickening at the right maxillary sinus. No significant mastoid fluid . Cervical spine: ALIGNMENT: The cervical spine has normal alignment without scoliosis or spondylolisthesis. BONE: Vertebral body heights are maintained. No aggressive osseous lesions. DEGENERATIVE: No significant focal degenerative changes. SOFT TISSUE: No significant abnormalities in the soft tissue of the neck. The visualized lung apices are clear. IMPRESSION: No acute intracranial abnormality. No acute fracture or traumatic malalignment of the cervical spine.
[2024-07-09 15:57] LABS: ALT/SGPT 18 U/L (16-61); Albumin 2.9 g/dL (3.4-5.0); Albumin/Globulin Ratio 0.9 (1.1-1.8); Alkaline Phosphatase 90 U/L (45-117); Anion Gap 9.9 mEq/L (5.0-15.0); BUN Blood Urea Nitrogen 49 mg/dL (7-18); Bicarbonate 26 mEq/L (21-32); Bilirubin Total 0.2 mg/dL (0.2-1.0); Globulin 3.4 g/dL (2.3-3.5); Glomerular Filtration Rate 44 ml/min (=/>90); Glucose Level 264 mg/dL (74-106); Lipase 31 U/L (13-75); Magnesium 1.7 mg/dL (1.6-2.4); NT PRO-BNP 2379 pg/mL (<450); Potassium 4.9 mEq/L (3.5-5.1); Protein, Total 6.3 g/dL (6.4-8.2); Sodium Level 139 mEq/L (136-145); Troponin High Sensitivity 11.8 pg/mL (<58.9)
[2024-07-09 15:58] LABS: AST/SGOT < 10 U/L (15-37); Bilirubin Direct < 0.2 mg/dL (0-0.2)
--- NOTE | 2024-07-09 16:02 | RAD REPORT ---
EXAM: Chest Abd Pelvis Wo Con CLINICAL INDICATION: Male, 79 years old ams, fall TECHNIQUE: CT chest, abdomen and pelvis was performed, without IV contrast, as per department protoco l. Axial, sagittal and coronal reconstructions were obtained. One or more of the following dose reduction techniques were used: Automated exposure control, adjustment of the mA and/or kV according to the patient size, and/or iterative reconstruction. Unless otherwise specified, incidental findings do not require dedicated imaging follow-up. [id number]. COMPARISON: CT abdomen/pelvis 06/10/2024 FINDINGS: The lack of intravenous contrast limits the sensitivity of this exam for evaluation of solid visceral organs, vascular structures, and retroperitoneum. ---THORAX--- LOWER NECK AND CHEST WALL: Visualized thyroid gland and soft tissues are normal. LUNGS AND AIRWAYS: Airways are clear. No evidence of airspace or interstitial process.Punctate nodule s in the right upper lobe are doubtful significance and does not require follow-up. PLEURA: No pleural effusion. No pneumothorax. MEDIASTINUM AND LYMPH NODES: No mediastinal mass or fluid collection. Normal size mediastinal, hilar, and axillary lymph nodes. THORACIC AORTA: No thoracic aortic aneurysm. Atherosclerotic changes are present. PULMONARY ARTERIES: Caliber is within normal limits. HEART: Normal heart size. Moderate coronary artery calcifications.No significant pericardial effusion . ---ABDOMEN/PELVIS--- UPPER GI: No significant abnormality. LIVER: No significant focal abnormality. GALLBLADDER/BILE DUCTS: Distended. Likely vicarious excretion.? PANCREAS: Atrophy, but otherwise unremarkable. SPLEEN: Unremarkable. ADRENALS: No adrenal masses. KIDNEYS AND URETERS: No hydronephrosis.Low density and/or too small to characterize renal lesions whi ch are statistically benign.No renal calculi.No ureteral calculi. ABDOMINAL AORTA AND OTHER VESSELS: Moderate atherosclerotic changes without aortic aneurysm. PERITONEUM: No abnormal free fluid. No free air. LYMPH NODES: No pathologic lymphadenopathy. ABDOMINAL WALL: Fat containing inguinal hernias. SMALL BOWEL/COLON: Small bowel has normal course and caliber. No colonic wall thickening or pericolon ic inflammatory changes. URINARY BLADDER: Underdistended but grossly unremarkable. REPRODUCTIVE ORGANS: Moderate prostatomegaly. Pronounced median lobe hypertrophy which impinges on th e bladder base. ---COMBINED--- MUSCULOSKELETAL: Slight angulation of the right posterior 10th and 11th ribs is probably chronic but difficult to exclude a nondisplaced acute rib fracture. ADDITIONAL FINDINGS: None. IMPRESSION: No definite evidence of significant trauma to the chest, abdomen, or pelvis. Slight angulation of the right posterior 10th and 11th ribs could conceivably represent nondisplaced rib fractures if the patient has point tenderness at this location.
[2024-07-09 16:29] LABS: Specific Gravity 1.017 (1.005-1.030); Sqamous Epithelial None Seen /HPF (None Seen); Urine Bacteria None Seen /HPF (<20); Urine Bilirubin NEGATIVE (Negative); Urine Blood 2+ (Negative); Urine Clarity Clear (Clear); Urine Color Light-Yellow (Yellow); Urine Crystals Unidentified Few /HPF (None Seen); Urine Culture Reflex Order NOT NEEDED; Urine Glucose TRACE (Negative); Urine Ketones NEGATIVE (Negative); Urine Microscopic Reflex YN ORDER UMIC; Urine Nitrite NEGATIVE (Negative); Urine Protein 2+ (Negative); Urine RBC 21-50 /HPF (None Seen); Urine Urobilinogen Normal (Normal); Urine WBC <5 /HPF (<5)
--- NOTE | 2024-07-09 16:30 | RAD REPORT ---
EXAM: Chest Single View HISTORY: 79 years Male COUGH COMPARISON: 06/10/2024 FINDINGS: LUNGS/PLEURA: The lungs are clear. No pleural effusions or pneumothorax. No pulmonary edema. CARDIAC/MEDIASTINUM: The cardiac silhouette is within normal limits. UPPER ABDOMEN: No significant abnormality. BONES: No acute abnormality. LINES/TUBES/OTHER: N/A IMPRESSION: No evidence of acute cardiopulmonary disease.
--- NOTE | 2024-07-09 17:33 | ER ---
Nurse's Notes [facility] Name: Dajuan Estrada Age: 79 yrs Sex: Male : 1945 Arrival Date: 07/09/2024 Time: 14:48 Bed IW10 Private MD: Diagnosis: Altered mental status, unspecified;Repeated falls;Type 2 diabetes mellitus with hyperglycemia Presentation: 07/09 14:54 Chief complaint: EMS states: they were toned out for x2 falls out of his wheelchair kc6 today. unknown LOC, (+) blood thinners. pt administered 0.5 mg of Narcan IV. Coronavirus screen: At this time, the client does not indicate any symptoms associated with coronavirus-19. Ebola Screen: No symptoms or risks identified at this time. Initial Sepsis Screen: Does the patient meet any 2 criteria? Altered Mental Status. Does the patient have a suspected source of infection? No. Patient's initial sepsis screen is negative. Risk Assessment: Do you want to hurt yourself or someone else? Unable to obtain. Onset of symptoms was July 09, 2024. Care prior to arrival: Medication(s) given: Narcan 0.5mg IV IV initiated. 20 GA, in the right forearm, Glucose check: 357. 14:54 Method Of Arrival: EMS: [facility] 14:54 Acuity: DARIA 2 kc6 Triage Assessment: 14:56 General: Appears in no apparent distress. comfortable, unkempt, Behavior is drowsy. kc6 Pain: Unable to use pain scale. Patient is disoriented. EENT: No signs and/or symptoms were reported regarding the EENT system. Neuro: Level of Consciousness is awake, alert, confused, Oriented to person, Pupils are non-reactive, pinpoint. Cardiovascular: Capillary refill < 3 seconds. Respiratory: Airway is patent Trachea midline Respiratory effort is even, unlabored, Respiratory pattern is regular, symmetrical. GI: No signs and/or symptoms were reported involving the gastrointestinal system. : No signs and/or symptoms were reported regarding the genitourinary system. Derm: Skin is healthy with good turgor, Skin is pink, warm \T\ dry. 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 Historical: - Allergies: 14:56 Unable to obtain; kc6 - PMHx: 14:56 Hypertension; High Cholesterol; Diabetes - NIDDM; kc6 - PSHx: 14:56 prostate sx; Right 3rd toe amputation; kc6 - Immunization history:: Adult Immunizations unknown. - Infectious Disease History:: Denies. - Social history:: Smoking status: unknown. Screenin:58 [facility] ED Fall Risk Assessment (Adult) History of falling in the last 3 months, kc6 including since admission Yes- fall prone (multiple falls) (3 pts) Confusion or Disorientation Yes (5 pts) Intoxicated or Sedated Yes (3 pts) Impaired Gait Yes (1 pt) Mobility Assist Device Used Yes (1 pt) Altered Elimination No (0 pt) Score/Fall Risk Level 3 or more points = High Risk Oriented to surroundings, Maintained a safe environment, Educated pt \T\ family on fall prevention, incl call for assistance when getting out of bed. Abuse screen: Denies threats or abuse. Denies injuries from another. Nutritional screening: No deficits noted. Tuberculosis screening: No symptoms or risk factors identified. Assessment: 15:09 Reassessment: please see triage. kc6 16:09 Reassessment: Patient appears in no apparent distress at this time. No changes from kc6 previously documented assessment. Patient and/or family updated on plan of care and expected duration. Pain level reassessed. 17:09 Reassessment: Patient appears in no apparent distress at this time. No changes from kc6 previously documented assessment. Patient and/or family updated on plan of care and expected duration. Pain level reassessed. 18:03 Reassessment: Patient appears in no apparent distress at this time. No changes from kc6 previously documented assessment. Patient and/or family updated on plan of care and expected duration. Pain level reassessed. 18:56 Reassessment: Patient appears in no apparent distress at this time. No changes from kc6 previously documented assessment. Patient and/or family updated on plan of care and expected duration. Pain level reassessed. Vital Signs: 14:54 BP 167 / 99; Pulse 59; Resp 18 S; Pulse Ox 99% on R/A; Weight 66.68 kg (M); kc6 16:57 BP 163 / 54; Pulse 59; Resp 16 S; Pulse Ox 98% on R/A; kc6 18:03 BP 176 / 56; Pulse 59; Resp 16 S; Pulse Ox 98% on R/A; kc6 18:57 BP 179 / 59; Pulse 56; Resp 16 S; Temp 98.6(TE); Pulse Ox 99% on R/A; kc6 20:00 BP 151 / 64; Pulse 57; Resp 18; Pulse Ox 97% ; me1 21:00 BP 165 / 95; Pulse 60; Resp 16; Pulse Ox 99% ; me1 ED Course: 14:53 Patient arrived in ED. kc6 14:56 Triage completed. kc6 14:56 Arm band placed on. kc6 14:57 Patient has correct armband on for positive identification. Placed in gown. Bed in low kc6 position. Call light in reach. Side rails up X2. firer powerhouse on. Pulse ox on. NIBP on. Door closed. Noise minimized. Lights dimmed. Warm blanket given. Pillow given. Verbal reassurance given. 14:58 Patient maintains SpO2 saturation greater than 95% on room air. kc6 14:59 Valeria Preston RN is Primary Nurse. kc6 14:59 Maintain EMS IV. Dressing intact. Good blood return noted. Site clean \T\ dry. Gauge \T\ james 6 site: 20G RFA. Flushed with 10 mL NS. 15:07 EKG done, by ED staff. kc6 15:18 Ed Barber MD is Attending Physician. smiley 15:46 Head C Spine Mpr Wo Con In Process Unspecified. EDMS 15:46 Chest Abd Pelvis Wo Con In Process Unspecified. EDMS 16:01 XRAY Chest (1 view) In Process Unspecified. EDMS 16:19 Urine collected: straight cath specimen, clear. Straight cath inserted, using sterile kc6 technique, 14 Fr. Specimen obtained. Returned clear yellow urine. Patient tolerated well. 17:32 Herber Kong MD is Hospitalizing Provider. smiley 19:39 Diet: Patient given water. Tolerated well. bm8 20:52 No provider procedures requiring assistance completed. Patient admitted, IV remains in fl1 place. 21:41 Provided Education on: POC. Son verbalized understanding. [facility] [place] Administered Medications: 15:32 Drug: foLIC Acid IVPB 1 mg IVPB once Route: IVPB; Site: right forearm; kc6 16:23 Follow up: Response: No adverse reaction; IV Status: Completed infusion; IV Intake: kc6 0.2ml 15:32 Drug: NS 0.9% IV 1000 ml IV at 1 bolus Per protocol; to be given as a bolus over 60 kc6 minutes Route: IV; Rate: 1 bolus; Site: right forearm; 18:57 Follow up: Response: No adverse reaction; IV Status: Completed infusion; IV Intake: kc6 1000ml 15:32 Drug: Famotidine IVP 20 mg IVP once; dilute with 10 mL 0.9% NaCl; give over 2 minutes kc6 Route: IVP; Site: right forearm; 16:22 Follow up: Response: No adverse reaction kc6 Medication: 21:46 VIS not applicable for this client. me1 Intake: 16:23 IV: 0ml; Total: 0ml. kc6 18:57 IV: 1000ml; Total: 1000ml. kc6 Outcome: 17:33 Decision to Hospitalize by Provider. smiley 20:52 Admitted to Tele accompanied by tech, room 415, with chart, Report called to faxed, me1 receipt confirmed with Bernadette 20:52 Condition: stable 20:52 Instructed on the need for admit, 22:32 Patient left the ED. vc1 Signatures: Dispatcher [employer] Ed Martinez MD MD cha Calcote, Vanessa RN RN vc1 Valeria Preston RN RN kc6 Sarah Hui RN RN me1 Flynn Lopez RN RN bm8
--- NOTE | 2024-07-09 17:33 | EDPHYS ---
Physician Documentation [facility] Name: Dajuan Estrada Age: 79 yrs Sex: Male : 1945 Arrival Date: 07/09/2024 Time: 14:48 Bed IW10 Private MD: ED Physician Ed Barber HPI: 07/09 17:22 This 79 yrs old Male presents to ER via EMS with complaints of Altered Mental smiley Status, Fall Injury. 17:22 The patient presents with confusion, decreased mental status, trouble concentrating. smiley Onset: The symptoms/episode began/occurred just prior to arrival, this morning, today. Possible causes: CVA or TIA, head injury, low blood sugar, seizure, sepsis. Associated signs and symptoms: Pertinent positives:. Patient's baseline: Neuro: alert but confused. It is unknown whether or not the patient has had similar symptoms in the past. Historical: - Allergies: 14:56 Unable to obtain; kc6 - PMHx: 14:56 Hypertension; High Cholesterol; Diabetes - NIDDM; kc6 - PSHx: 14:56 prostate sx; Right 3rd toe amputation; kc6 - Immunization history:: Adult Immunizations unknown. - Infectious Disease History:: Denies. - Social history:: Smoking status: unknown. ROS: 17:24 Constitutional: Negative for fever, chills, and weight loss, Eyes: Negative for injury, smiley pain, redness, and discharge, ENT: Negative for injury, pain, and discharge, Neck: Negative for injury, pain, and swelling, Cardiovascular: Negative for chest pain, palpitations, and edema, Respiratory: Negative for shortness of breath, cough, wheezing, and pleuritic chest pain, Abdomen/GI: Negative for abdominal pain, nausea, vomiting, diarrhea, and constipation, Back: Negative for injury and pain, : Negative for injury, bleeding, discharge, and swelling, MS/Extremity: Negative for injury and deformity, Skin: Negative for injury, rash, and discoloration, Psych: Negative for depression, anxiety, suicide ideation, homicidal ideation, and hallucinations, Allergy/Immunology: Negative for hives, rash, and allergies, Endocrine: Negative for neck swelling, polydipsia, polyuria, polyphagia, and marked weight changes, Hematologic/Lymphatic: Negative for swollen nodes, abnormal bleeding, and unusual bruising, 17:24 Neuro: Positive for altered mental status, weakness, Exam: 17:24 Constitutional: This is a well developed, well nourished patient who is awake, alert, smiley and in no acute distress. Head/Face: Normocephalic, atraumatic. Eyes: Pupils equal round and reactive to light, extra-ocular motions intact. Lids and lashes normal. Conjunctiva and sclera are non-icteric and not injected. Cornea within normal limits. Periorbital areas with no swelling, redness, or edema. ENT: Nares patent. No nasal discharge, no septal abnormalities noted. Tympanic membranes are normal and external auditory canals are clear. Oropharynx with no redness, swelling, or masses, exudates, or evidence of obstruction, uvula midline. Mucous membranes moist. Neck: Trachea midline, no thyromegaly or masses palpated, and no cervical lymphadenopathy. Supple, full range of motion without nuchal rigidity, or vertebral point tenderness. No Meningismus. Chest/axilla: Normal chest wall appearance and motion. Nontender with no deformity. No lesions are appreciated. Cardiovascular: Regular rate and rhythm with a normal S1 and S2. No gallops, murmurs, or rubs. Normal PMI, no JVD. No pulse deficits. Respiratory: Lungs have equal breath sounds bilaterally, clear to auscultation and percussion. No rales, rhonchi or wheezes noted. No increased work of breathing, no retractions or nasal flaring. Abdomen/GI: Soft, non-tender, with normal bowel sounds. No distension or tympany. No guarding or rebound. No evidence of tenderness throughout. Back: No spinal tenderness. No costovertebral tenderness. Full range of motion. Skin: Warm, dry with normal turgor. Normal color with no rashes, no lesions, and no evidence of cellulitis. MS/ Extremity: Pulses equal, no cyanosis. Neurovascular intact. Full, normal range of motion., bilateral aka Psych: Awake, alert, with orientation to person, place and time. Behavior, mood, and affect are within normal limits. 17:24 ECG was reviewed by the Attending Physician. 17:24 Neuro: Orientation: Not oriented to person, place, time, situation, Mentation: slow to respond, confused, Memory: unable to test, Cranial nerves: no acute changes, Cerebellar function: unable to test, Motor: moves all fours, Sensation: unable to test, seizure activity, is not displayed by the patient, Vital Signs: 14:54 BP 167 / 99; Pulse 59; Resp 18 S; Pulse Ox 99% on R/A; Weight 66.68 kg (M); kc6 16:57 BP 163 / 54; Pulse 59; Resp 16 S; Pulse Ox 98% on R/A; kc6 18:03 BP 176 / 56; Pulse 59; Resp 16 S; Pulse Ox 98% on R/A; kc6 18:57 BP 179 / 59; Pulse 56; Resp 16 S; Temp 98.6(TE); Pulse Ox 99% on R/A; kc6 20:00 BP 151 / 64; Pulse 57; Resp 18; Pulse Ox 97% ; me1 21:00 BP 165 / 95; Pulse 60; Resp 16; Pulse Ox 99% ; me1 MDM: 15:18 Medical Screening Exam initiated smiley 17:27 Differential diagnosis: intra-abdominal injury, closed head injury, cardiac contusion, smiley extremity fracture, C spine fracture, T spine fracture, L spine fracture. Differential Diagnosis altered mental status, sepsis, flu. Differential Diagnosis: CVA, electrolyte abnormality, hypoglycemia, intracranial bleed, meningitis, overdose, pneumonia, seizure, sepsis, TIA, UTI, volume depletion. Data reviewed: vital signs, nurses notes, lab test result(s), EKG, radiologic studies, CT scan, plain films. Consideration of Admission/Observation Patient was admitted/placed on observation. Escalation of care including admission/observation considered. I considered the following discharge prescriptions or medication management in the emergency department Medications were administered in the Emergency Department. See MAR. Independent interpretation of the following test(s) in the Emergency Department CT Scan: My interpretation is CT TRAUMA. Test considered but Not performed: Ultrasound NO USG. MRI: NO MRI. 07/09 15:19 Order name: Basic Metabolic Panel; Complete Time: 17:19 [facility] 07/09 15:19 Order name: CBC with Diff; Complete Time: 17:19 [facility] 07/09 15:19 Order name: LFT's; Complete Time: 17:19 [facility] 07/09 15:19 Order name: Magnesium; Complete Time: 17:19 [facility] 07/09 15:19 Order name: NT PRO-BNP; Complete Time: 17:19 [facility] 07/09 15:19 Order name: PT-INR; Complete Time: 17:19 smiley 07/09 15:19 Order name: Troponin HS; Complete Time: 17:19 smiley 07/09 15:19 Order name: Lipase; Complete Time: 17:19 smiley 07/09 15:19 Order name: Urinalysis w/ reflexes; Complete Time: 17:19 smiley 07/09 17:19 Order name: AMMONIA smiley 07/09 19:25 Order name: CBC with Automated Diff EDMS 07/09 19:25 Order name: CBC with Automated Diff EDMS 07/09 19:25 Order name: CBC with Automated Diff EDMS 07/09 19:25 Order name: CBC with Automated Diff EDMS 07/09 19:25 Order name: Comprehensive Metabolic Panel EDMS 07/09 19:25 Order name: Comprehensive Metabolic Panel EDMS 07/09 19:25 Order name: Comprehensive Metabolic Panel EDMS 07/09 19:25 Order name: Comprehensive Metabolic Panel EDMS 07/09 19:25 Order name: Troponin High Sensitivity EDMS 07/09 19:25 Order name: Troponin High Sensitivity EDMS 07/09 19:25 Order name: Troponin High Sensitivity EDMS 07/09 19:25 Order name: Troponin High Sensitivity EDMS 07/09 20:27 Order name: Glucose, Ancillary Testing EDMS 07/09 15:19 Order name: XRAY Chest (1 view); Complete Time: 17:19 smiley 07/09 15:24 Order name: Head C Spine Mpr Wo Con; Complete Time: 17:19 EDMS 07/09 15:26 Order name: Chest Abd Pelvis Wo Con; Complete Time: 17:19 EDMS 07/09 15:19 Order name: EKG; Complete Time: 15:20 smiley 07/09 15:19 Order name: Cardiac monitoring; Complete Time: 15:20 smiley 07/09 15:19 Order name: EKG - Nurse/Tech; Complete Time: 15:20 smiley 07/09 15:19 Order name: IV Saline Lock; Complete Time: 15:20 smiley 07/09 15:19 Order name: Labs collected and sent; Complete Time: 15:32 smiley 07/09 15:19 Order name: O2 Per Protocol; Complete Time: 15:20 smiley 07/09 15:19 Order name: O2 Sat Monitoring; Complete Time: 15:20 [facility] EC:24 Rate is 59 beats/min. Rhythm is regular. QRS [place] is Normal. MA interval is normal. QRS smiley interval is normal. QT interval is normal. No Q waves. T waves are Normal. No ST changes noted. Clinical impression: NSR w/ Non-specific ST/T Changes and No evidence of ischemia. Interpreted by me. Reviewed by me. Administered Medications: 15:32 Drug: foLIC Acid IVPB 1 mg IVPB once Route: IVPB; Site: right forearm; kc6 16:23 Follow up: Response: No adverse reaction; IV Status: Completed infusion; IV Intake: kc6 0.2ml 15:32 Drug: NS 0.9% IV 1000 ml IV at 1 bolus Per protocol; to be given as a bolus over 60 kc6 minutes Route: IV; Rate: 1 bolus; Site: right forearm; 18:57 Follow up: Response: No adverse reaction; IV Status: Completed infusion; IV Intake: kc6 1000ml 15:32 Drug: Famotidine IVP 20 mg IVP once; dilute with 10 mL 0.9% NaCl; give over 2 minutes kc6 Route: IVP; Site: right forearm; 16:22 Follow up: Response: No adverse reaction kc6 Disposition Summary: 07/09/24 17:33 Hospitalization Ordered Notes: Hospitalization Status: Observation smiley Provider: Herber Kong cha Location: Telemetry/MedSurg (observation) smiley Condition: Fair smiley Problem: new smiley Symptoms: have improved smiley Bed/Room Type: Standard smiley Room Assignment: 415(07/09/24 20:15) rv1 Diagnosis - Altered mental status, unspecified smiley - Repeated falls smiley - Type 2 diabetes mellitus with hyperglycemia smiley Forms: - Medication Reconciliation Form smiley - SBAR form smiley - Leadership Thank You Letter smiley Signatures: Dispatcher [employer] EDEd Burgess MD MD cha Campbell, Kaitlyn RN RN kc6 Bernadette Montalvo rv1 Corrections: (The following items were deleted from the chart) 15:20 15:20 BASIC METABOLIC PANEL+C.LAB.BRZ ordered. EDMS EDMS 15:20 15:20 CBC+H.LAB.BRZ ordered. EDMS EDMS 15:20 15:20 HEPATIC FUNCTION+C.LAB.BRZ ordered. EDMS EDMS 15:20 15:20 MAGNESIUM+C.LAB.BRZ ordered. EDMS EDMS 15:20 15:20 PROBNP+C.LAB.BRZ ordered. EDMS EDMS 15:20 15:20 PROTIME (+INR)+COAG.LAB.BRZ ordered. EDMS EDMS 15:20 15:20 Troponin High Sensitivity+C.LAB.BRZ ordered. EDMS EDMS 15:20 15:20 LIPASE+C.LAB.BRZ ordered. EDMS EDMS 15:20 15:20 Urinalysis+U.LAB.BRZ ordered. EDMS EDMS 15:22 15:20 Head C Spine Cap Wo Con+CT.RAD.BRZ ordered. EDMS EDMS 20:15 17:33 smiley rv1
[2024-07-09] MEDS ORDERED: ALBUTEROL 2.5 MG/3 ML NEB SOL NEB PRN (19:18)
[2024-07-09] MEDS ORDERED: ONDANSETRON 4 MG/2 ML VIAL IV PRN (19:21)
--- NOTE | 2024-07-09 19:43 | P.HP ---
Patient History Date of Service: 07/10/24 Reason for admission: Multiple falls History of Present Illness: This is a 79-year-old male with a past medical history of hypertension, diabetes, hyperlipidemia, history of CVA, who presents after multiple falls from his wheelchair earlier today alongside metabolic encephalopathy. His son is at bedside and relates most of the history. He states earlier today he was at [facility] for his wound care appointment. On his way back he kept fa lling out of his wheelchair per EMS. He was brought down to [place]. EMS was concerned because he is nonverbal and kept falling over. His son states his ability to be verbal has declined significantly over the last couple of years. He has not been able to stand up since last July. 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 His son denies any recent changes including fevers, shortness of breath, or chest pain. He does have a wound on his left stump which has been improving. Allergies No Known Drug Allergies Allergy (Verified 07/06/18 16:14) Unknown Home Medications: lisinopriL [Prinivil*] 20 mg PO DAILY 03/15/14 Metformin HCl 1,000 mg PO BIDWM 07/06/18 Nateglinide [Starlix*] 1 tab PO TID 07/06/18 Atorvastatin Calcium [Lipitor] 40 mg PO BEDTIME #30 tab 07/08/18 Clopidogrel Bisulfate [Plavix*] 75 mg PO DAILY #30 tablet 07/08/18 Empagliflozin [Jardiance] 25 mg PO DAILY 09/05/23 Tamsulosin HCl [Flomax] 0.4 mg PO DAILY 09/05/23 glipiZIDE [Glipizide] 5 mg PO BID 09/05/23 Ciprofloxacin HCl [Cipro 500 MG Tablet] 750 mg PO BID 42 Days #84 tab 09/08/23 Metoprolol Tartrate [Lopressor*] 25 mg PO BID 6AM 6PM tab 09/08/23 Collagenase [Santyl Ointment] 10 appl TOP DAILY 30 Days #1 tube 09/09/23 Collagenase [Santyl Ointment] 30 gm TP DAILY #1 ea 09/09/23 - Past Medical/Surgical History Diabetic: Yes -: NIDDM -: HTN -: Hyperlipidemia -: Enlarged Prostate -: sx on left foot after needle pucture -: Willis Cataract sx -: right third toe amputation Psychosocial/ Personal History: Lives at home with his . Niece, Sandhya, here with him. - Family History Father -: Heart disease - Social History Alcohol use: No CD- Drugs: No Caffeine use: No Review of Systems is unable to be obtained (Acute metabolic encephalopathy) Physical Examination - Physical Exam General: Alert, In no apparent distress HEENT: Atraumatic, Normocephalic Neck: Supple Respiratory: Clear to auscultation bilaterally Cardiovascular: No edema Capillary refill: <2 Seconds Gastrointestinal: Normal bowel sounds Musculoskeletal: No clubbing Integumentary: No rashes, Other (Right midfoot amputation dressed, left leg BKA dressed) Neurological: Dementia Lymphatics: No axilla or inguinal lymphadenopathy - Studies Laboratory Data (last 24 hrs) 07/09/24 07/09/24 07/09/24 15:29 15:29 15:29 WBC 10.00 Hgb 10.5 L Hct 30.9 L Plt Count 261 PT 11.4 INR 1.00 Sodium 139 Potassium 4.9 BUN 49 H Creatinine 1.60 H Glucose 264 H Magnesium 1.7 Total Bilirubin 0.2 AST < 10 L ALT 18 Alkaline Phosphatase 90 Lipase 31 Assessment and Plan - Plan Multiple falls Metabolic encephalopathy Elevated creatinine Dehydration Type 2 diabetes mellitus with hyperglycemia Left leg wound PAD Hypertension Hyperlipidemia History of CVA Anemia History of left BKA Placed on telemetry, serial troponin, obtain blood culture Start IV fluids Obtain MRI of the head, CT head reviewed Carotid ultrasound Physical therapy consult Start moderate dose sliding scale insulin Consult wound care team Continue Plavix and statin Continue Jardiance Resume home lisinopril and metoprolol Continue home tamsulosin DVT prophylaxis with SCDs - Advance Directives Does patient have a Living Will: No Does patient have a Durable POA for Healthcare: No
[2024-07-09] MEDS ORDERED: D10W 125 ML IV PRN (19:48)
[2024-07-09] MEDS ORDERED: GLUCAGON 1 MG/VIAL IM PRN (19:48)
[2024-07-09] MEDS: NA CHLORIDE 0.9% 1,000 ML IV SCH (20:00)
[2024-07-09] MEDS: INSULIN REGULAR (HUMAN) 100 UNIT/ML SQ SCH (21:00)
[2024-07-09] MEDS: ATORVASTATIN 40 MG TAB PO SCH (21:00)
[2024-07-10] MEDS: HYDRALAZINE HCL 20 MG/ML VIAL IV ONE (05:51)
[2024-07-10] MEDS: METOPROLOL TAR 25 MG TAB PO SCH (05:53)
[2024-07-10 06:17] LABS: Absolute Basophils 0.1 K/uL (0-0.5); Absolute Eosinophils 0.3 K/uL (0-0.5); Absolute Lymphocytes (CBC) 1.2 K/uL (0.7-4.9); Absolute Monocytes 0.6 K/uL (0.1-1.3); Absolute Neutrophil 5.6 K/uL (1.8-8.0); Basophils % 0.8 % (0-1.3); Eosinophils % 3.5 % (0-4.4); Hematocrit 26.9 % (39.6-49.0); Hemoglobin 9.8 g/dL (13.6-17.9); Lymphocytes % 16.1 % (15.3-44.8); MCH 33.3 pg (27.0-35.0); MCHC 36.3 g/dL (32.0-36.0); MCV 91.7 fL (80-100); MPV 9.2 fL (7.6-11.3); Monocytes % 7.2 % (3.3-12.3); Neutrophils % 72.4 % (41.7-73.7); Nucleated Red Blood Cells % 0.1 % (0-0); Platelets 263 thou/uL (152-406); RBC Red Blood Cell Count 2.94 M/uL (4.33-5.43); Red Cell Distribution Width 17.1 % (12.1-15.2)
[2024-07-10 06:37] LABS: ALT/SGPT 17 U/L (16-61); Albumin/Globulin Ratio 0.9 (1.1-1.8); Alkaline Phosphatase 88 U/L (45-117); BUN Blood Urea Nitrogen 36 mg/dL (7-18); Bicarbonate 27 mEq/L (21-32); Bilirubin Total 0.3 mg/dL (0.2-1.0); Globulin 3.2 g/dL (2.3-3.5); Glomerular Filtration Rate 75 ml/min (=/>90); Glucose Level 268 mg/dL (74-106); Protein, Total 6.2 g/dL (6.4-8.2); Sodium Level 140 mEq/L (136-145); Troponin High Sensitivity 16.7 pg/mL (<58.9)
[2024-07-10 06:38] LABS: AST/SGOT < 10 U/L (15-37)
[2024-07-10 07:43] VITALS: BMI 28.7
[2024-07-10] MEDS: lisinopriL 10 MG TAB PO SCH (08:03)
[2024-07-10] MEDS: TAMSULOSIN 0.4 MG SR CAP PO SCH (08:03)
[2024-07-10] MEDS: CLOPIDOGREL 75 MG TABLET PO SCH (08:03)
[2024-07-10] MEDS: Empagliflozin 25 MG Tablet PO SCH (08:04)
--- NOTE | 2024-07-10 08:25 | RAD REPORT ---
EXAMINATION: US CAROTID DUPLEX CLINICAL INDICATION: , 79 years old. Multiple falls. TECHNIQUE: Real-time grayscale, color flow and spectral Doppler sonographic images were obtained of t extracranial carotid system using a linear transducer. [id number]. COMPARISON: No prior exam. FINDINGS: RIGHT: Common carotid artery: 80 cm/s Internal carotid artery: 52 cm/s External carotid artery: 120 cm/s Right ICA/CCA ratio: 0.9 Plaque Moderate Calcified and noncalcified Vertebral artery Antegrade LEFT: Common carotid artery: 84 cm/s Internal carotid artery: 116 cm/s External carotid artery: 101 cm/s lEFT ICA/CCA ratio: 1.4 Plaque Moderate Calcified and noncalcified Vertebral artery Antegrade IMPRESSION: No hemodynamically significant stenosis (greater than 50%) within the extracranial internal carotid a [facility].
--- NOTE | 2024-07-10 12:34 | EKG ---
Test Date: 2024-07-09 Test Time: 15:02:48 Fraud Investigator: BARBIE MEASUREMENT RESULTS: Intervals: Rate: 59 OR: 150 QRSD: 146 QT: 466 QTc: 461 [place]: P: 44 OR: 150 QRS: 75 T: 24 INTERPRETIVE STATEMENTS: Sinus bradycardia Left bundle branch block Abnormal ECG Compared to ECG 07/06/2018 11:55:08 No significant changes Electronically Signed On 07-10-24 12:32:19 CDT by Cornelius Santos
[2024-07-10] MEDS: HYDRALAZINE HCL 20 MG/ML VIAL IV PRN (12:51)
--- NOTE | 2024-07-10 17:41 | RAD REPORT ---
EXAMINATION: MRI BRAIN WITHOUT AND WITH CONTRAST CLINICAL INDICATION: Head injury status post fall TECHNIQUE: Multiplanar multisequence MR images of the brain were obtained without and with intravenous contrast. 15 cc MultiHance administered intravenously. COMPARISON: July 09, 2024 Old pontine infarction. Old lacunar infarctions left thalamus and left basal ganglia. Mild to moderate abnormal signal within periventricular, deep and subcortical white matter probably i schemic changes secondary to small vessel disease Diffusion weighted/ADC mapping images do not reveal evidence of an acute infarction No abnormal enhancement within the brain visualized. Ventricles are normal caliber No extra-axial fluid collection No fluid within the visualized sinuses/mastoids. IMPRESSION: No acute intracranial abnormality seen.
--- NOTE | 2024-07-10 19:25 | P.PN ---
Subjective Date of Service: 07/10/24 Chief Complaint: Multiple falls Patient has dementia unable to give subjective complaint. No issues overnight. No reported agitation. Physical Examination - Vital Signs Temperature: 97.7 F Blood Pressure: 165/62 Pulse: 61 Respirations: 15 Pulse Ox (%): 99 Assessment And Plan - Plan Physical examination General: Alert and oriented x1, NAD, HEENT: Conjunctiva not pale, anicteric sclera Neck: Supple, no elevated JVD Heart: Heart sounds 1 and 2 normal, regular rhythm, normal rate, no pedal edema Lungs: Clear to auscultation bilaterally, adequate breath sounds bilaterally, no rhonchi or crackles. Abdomen: Soft, nondistended, nontender, normal bowel sounds. Extremities: No tenderness, no deformity Skin: Normal skin turgor, no rash, no nodules or ulcers. Neuro: No focal motor deficit. Normal speech. Psychiatry: Normal mood, no agitation. Diagnosis Multiple falls Elevated creatinine Dehydration Type 2 diabetes mellitus with hyperglycemia Left leg wound PAD Hypertension Hyperlipidemia History of CVA Anemia History of left BKA Plan: Troponin trended negative. Blood cultures pending Continue IV fluid MRI of the brain showed no acute disease. Carotid ultrasound showed no hemodynamically significant stenosis. Patient needing maximum assist with transfers. Limb Spasticity. Patient condition likely related to declining dementia. Neurology consult. Continue PT. Insulin sliding scale for glucose management Local wound care Continue Plavix and statin Continue Jardiance Continue home tamsulosin DVT prophylaxis with SCDs
[2024-07-11 06:18] LABS: Albumin 2.9 g/dL (3.4-5.0); Alkaline Phosphatase 80 U/L (45-117); Anion Gap 8.8 mEq/L (5.0-15.0); BUN Blood Urea Nitrogen 29 mg/dL (7-18); Bicarbonate 27 mEq/L (21-32); Bilirubin Total 0.4 mg/dL (0.2-1.0); Glomerular Filtration Rate 67 ml/min (=/>90); Glucose Level 157 mg/dL (74-106); Potassium 3.8 mEq/L (3.5-5.1); Protein, Total 5.9 g/dL (6.4-8.2); Sodium Level 141 mEq/L (136-145)
[2024-07-11 06:20] LABS: Absolute Eosinophils 0.2 K/uL (0-0.5); Absolute Lymphocytes (CBC) 1.5 K/uL (0.7-4.9); Absolute Monocytes 0.7 K/uL (0.1-1.3); Absolute Neutrophil 6.5 K/uL (1.8-8.0); Basophils % 0.5 % (0-1.3); Eosinophils % 2.8 % (0-4.4); Hematocrit 29.1 % (39.6-49.0); Lymphocytes % 16.7 % (15.3-44.8); MCH 29.1 pg (27.0-35.0); MCHC 34.3 g/dL (32.0-36.0); MPV 9.4 fL (7.6-11.3); Monocytes % 7.5 % (3.3-12.3); Neutrophils % 72.5 % (41.7-73.7); Nucleated Red Blood Cells % 0.1 % (0-0); Platelets 277 thou/uL (152-406); RBC Red Blood Cell Count 3.43 M/uL (4.33-5.43); Red Cell Distribution Width 17.5 % (12.1-15.2)
[2024-07-11 06:39] LABS: ALT/SGPT < 14 U/L (16-61); AST/SGOT < 10 U/L (15-37)
--- NOTE | 2024-07-11 17:23 | P.PN ---
Subjective Date of Service: 07/11/24 Chief Complaint: Multiple falls Patient has dementia unable to give subjective complaint. No issues overnight. Patient has been afebrile. Physical Examination - Vital Signs Temperature: 98.3 F Blood Pressure: 181/81 Pulse: 76 Respirations: 18 Pulse Ox (%): 94 - Studies Laboratory Data (last 24 hrs) 07/11/24 07/11/24 05:39 05:39 WBC 9.00 Hgb 10.0 L Hct 29.1 L Plt Count 277 Sodium 141 Potassium 3.8 BUN 29 H Creatinine 1.12 Glucose 157 H Total Bilirubin 0.4 AST < 10 L ALT < 14 L Alkaline Phosphatase 80 Microbiology Data (last 24 hrs): 07/10/24 06:01 Blood - Blood Anaerobic Blood Culture - Final Assessment And Plan - Plan Physical examination General: Oriented x1, NAD, HEENT: Anicteric sclera Neck: Supple, no elevated JVD Heart: Heart sounds 1 and 2 normal, regular rhythm, normal rate, no pedal edema Lungs: Clear to auscultation bilaterally, adequate breath sounds bilaterally, no rhonchi or crackles. Abdomen: Soft, nondistended, nontender, normal bowel sounds. Extremities: No tenderness, no deformity Skin: Normal skin turgor, no rash, no nodules or ulcers. Neuro: No focal motor deficit. Normal speech. Psychiatry: Normal mood, no agitation. Diagnosis Multiple falls Elevated creatinine Acute kidney injury Type 2 diabetes mellitus with hyperglycemia Left leg wound PAD Hypertension Hyperlipidemia History of CVA Anemia History of left BKA Plan: Troponin trended negative. Blood cultures: No growth to date MRI of the brain showed no acute disease. No acute CVA Carotid ultrasound showed no hemodynamically significant stenosis. JON resolved with IV hydration. Continue IV fluid Patient condition likely related to declining dementia. Neurology consult. Continue PT. Insulin sliding scale for glucose management Local wound care Continue Plavix and statin Continue Jardiance Continue home tamsulosin Social service to evaluate for SNF. DVT prophylaxis with SCDs
[2024-07-12 06:15] LABS: Absolute Eosinophils 0.1 K/uL (0-0.5); Absolute Monocytes 0.9 K/uL (0.1-1.3); Absolute Neutrophil 5.5 K/uL (1.8-8.0); Basophils % 0.5 % (0-1.3); Eosinophils % 1.4 % (0-4.4); Hematocrit 27.9 % (39.6-49.0); Hemoglobin 9.5 g/dL (13.6-17.9); Lymphocytes % 13.7 % (15.3-44.8); MCHC 34.2 g/dL (32.0-36.0); MCV 84.9 fL (80-100); MPV 9.7 fL (7.6-11.3); Monocytes % 11.6 % (3.3-12.3); Neutrophils % 72.8 % (41.7-73.7); Nucleated Red Blood Cells % 0.1 % (0-0); Platelets 250 thou/uL (152-406); RBC Red Blood Cell Count 3.28 M/uL (4.33-5.43); Red Cell Distribution Width 17.8 % (12.1-15.2)
[2024-07-12 06:33] LABS: Albumin 2.7 g/dL (3.4-5.0); Albumin/Globulin Ratio 0.9 (1.1-1.8); Alkaline Phosphatase 81 U/L (45-117); Anion Gap 6.8 mEq/L (5.0-15.0); BUN Blood Urea Nitrogen 26 mg/dL (7-18); Bicarbonate 28 mEq/L (21-32); Bilirubin Total 0.4 mg/dL (0.2-1.0); Globulin 3.1 g/dL (2.3-3.5); Glomerular Filtration Rate 63 ml/min (=/>90); Glucose Level 157 mg/dL (74-106); Potassium 3.8 mEq/L (3.5-5.1); Protein, Total 5.8 g/dL (6.4-8.2); Sodium Level 142 mEq/L (136-145)
[2024-07-12 06:34] LABS: ALT/SGPT < 14 U/L (16-61); AST/SGOT < 10 U/L (15-37)
--- NOTE | 2024-07-12 14:54 | P.PN ---
Subjective Date of Service: 07/12/24 Chief Complaint: Multiple falls Patient has dementia unable to give subjective complaint. He is awake and pleasant He is tolerating his diet. Physical Examination - Vital Signs Temperature: 97.9 F Blood Pressure: 170/68 Pulse: 65 Respirations: 18 Pulse Ox (%): 97 Assessment And Plan - Plan Physical examination General: Oriented x1, NAD, HEENT: Anicteric sclera Neck: Supple, no elevated JVD Heart: Heart sounds 1 and 2 normal, regular rhythm, normal rate, no pedal edema Lungs: Clear to auscultation bilaterally, adequate breath sounds bilaterally, no rhonchi or crackles. Abdomen: Soft, nondistended, nontender, normal bowel sounds. Extremities: No tenderness, no deformity Skin: Normal skin turgor, no rash, no nodules or ulcers. Neuro: No focal motor deficit. Normal speech. Psychiatry: No agitation. Diagnosis Multiple falls Elevated creatinine Acute kidney injury Type 2 diabetes mellitus with hyperglycemia Left leg wound PAD Hypertension Hyperlipidemia History of CVA Anemia History of left BKA Plan: Troponin trended negative. Blood cultures: No growth to date MRI of the brain showed no acute disease. No acute CVA Carotid ultrasound showed no hemodynamically significant stenosis. JON resolved with IV hydration. Continue IV fluid Patient condition likely related to declining dementia. Neurology consult. Continue PT. Insulin sliding scale for glucose management Local wound care Continue Plavix and statin Continue Jardiance Continue home tamsulosin Social service to evaluate for SNF. 07/12 MRI of the brain is negative, acute CVA ruled out JON resolved Patient is tolerating diet He is needing maximum assistance with transfers. Spoke to patient's son patient looking forward to skilled rehab Continue Plavix and statin Continued home medications Social service consulted for SNF placement. Continue PT. DVT prophylaxis with SCDs
[2024-07-12] MEDS: ACETAMINOPHEN 500 MG TAB PO PRN (20:29)
--- NOTE | 2024-07-13 14:40 | P.PN ---
Subjective Date of Service: 07/13/24 Chief Complaint: Multiple falls Patient has has no new complaint He is tolerating his diet. No agitation. Physical Examination - Vital Signs Temperature: 97.6 F Blood Pressure: 151/60 Pulse: 58 Respirations: 14 Pulse Ox (%): 98 Assessment And Plan - Plan Physical examination General: Oriented x1, NAD, Neck: Supple, no elevated JVD Heart: Heart sounds 1 and 2 normal, regular rhythm, normal rate, no pedal edema Lungs: Clear to auscultation bilaterally, adequate breath sounds bilaterally, no rhonchi or crackles. Abdomen: Soft, nondistended, nontender, normal bowel sounds. Extremities: No tenderness, no deformity Skin: Normal skin turgor, amputation stump wound looks clean. Neuro: No focal motor deficit. Normal speech. Psychiatry: No agitation. Diagnosis Multiple falls Elevated creatinine Acute kidney injury Type 2 diabetes mellitus with hyperglycemia Left leg wound PAD Hypertension Hyperlipidemia History of CVA Anemia History of left BKA Plan: Troponin trended negative. Blood cultures: No growth to date MRI of the brain showed no acute disease. No acute CVA Carotid ultrasound showed no hemodynamically significant stenosis. JON resolved with IV hydration. Continue IV fluid Patient condition likely related to declining dementia. Neurology consult. Continue PT. Insulin sliding scale for glucose management Local wound care Continue Plavix and statin Continue Jardiance Continue home tamsulosin Social service to evaluate for SNF. 07/12 MRI of the brain is negative, acute CVA ruled out JON resolved Patient is tolerating diet He is needing maximum assistance with transfers. Spoke to patient's son patient looking forward to skilled rehab Continue Plavix and statin Continued home medications Social service consulted for SNF placement. Continue PT. 07/13 No major changes from yesterday. Patient is on Plavix and statin Continue other home medication Local wound care for amputation stump wound Continue PT Patient slated for SNF placement. DVT prophylaxis with SCDs
[2024-07-14] MEDS ORDERED: ALBUTEROL 2.5 MG/3 ML NEB SOL NEB PRN (15:06)
[2024-07-14] MEDS: INSULIN GLARGINE 100 UNIT/ML SQ SCH (15:23)
--- NOTE | 2024-07-14 16:39 | P.PN ---
Subjective Date of Service: 07/14/24 Chief Complaint: Multiple falls Patient has has no new complaint No issues overnight. Patient appears comfortable. Blood sugar readings are elevated today. Physical Examination - Vital Signs Temperature: 97.4 F Blood Pressure: 139/53 Pulse: 64 Respirations: 17 Pulse Ox (%): 98 Assessment And Plan - Plan Physical examination General: Oriented x1, NAD, Neck: Supple, no elevated JVD Heart: Heart sounds 1 and 2 normal, regular rhythm, normal rate, no pedal edema Lungs: Clear to auscultation bilaterally, adequate breath sounds bilaterally, no rhonchi or crackles. Abdomen: Soft, nondistended, nontender, normal bowel sounds. Skin: Normal skin turgor, amputation stump wound looks clean. Neuro: No focal motor deficit. h. Psychiatry: No agitation. Diagnosis Multiple falls Elevated creatinine Acute kidney injury Type 2 diabetes mellitus with hyperglycemia Left leg wound PAD Hypertension Hyperlipidemia History of CVA Anemia History of left BKA Plan: Troponin trended negative. Blood cultures: No growth to date MRI of the brain showed no acute disease. No acute CVA Carotid ultrasound showed no hemodynamically significant stenosis. JON resolved with IV hydration. Continue IV fluid Patient condition likely related to declining dementia. Neurology consult. Continue PT. Insulin sliding scale for glucose management Local wound care Continue Plavix and statin Continue Jardiance Continue home tamsulosin Social service to evaluate for SNF. 07/12 MRI of the brain is negative, acute CVA ruled out JON resolved Patient is tolerating diet He is needing maximum assistance with transfers. Spoke to patient's son patient looking forward to skilled rehab Continue Plavix and statin Continued home medications Social service consulted for SNF placement. Continue PT. 07/13 No major changes from yesterday. Patient is on Plavix and statin Continue other home medication Local wound care for amputation stump wound Continue PT Patient slated for SNF placement. 07/14 Patient with hyperglycemia Continue insulin sliding scale. Added Semglee insulin 30 units twice daily Monitor blood sugar levels Continue local wound care Continue PT Awaiting SNF placement. DVT prophylaxis with SCDs
[2024-07-15] MEDS: MELATONIN 5 MG TABLET PO PRN (01:11)
[2024-07-15 05:42] LABS: Absolute Eosinophils 0.1 K/uL (0-0.5); Absolute Lymphocytes (CBC) 0.8 K/uL (0.7-4.9); Absolute Neutrophil 3.8 K/uL (1.8-8.0); Basophils % 0.4 % (0-1.3); Eosinophils % 1.1 % (0-4.4); Hematocrit 28.6 % (39.6-49.0); Hemoglobin 9.8 g/dL (13.6-17.9); Lymphocytes % 13.8 % (15.3-44.8); MCH 28.9 pg (27.0-35.0); MCHC 34.1 g/dL (32.0-36.0); MCV 84.6 fL (80-100); MPV 8.8 fL (7.6-11.3); Monocytes % 18.4 % (3.3-12.3); Neutrophils % 66.3 % (41.7-73.7); Platelets 298 thou/uL (152-406); RBC Red Blood Cell Count 3.38 M/uL (4.33-5.43)
[2024-07-15 05:58] LABS: Anion Gap 9.3 mEq/L (5.0-15.0); Potassium 4.3 mEq/L (3.5-5.1)
--- NOTE | 2024-07-15 13:03 | P.PN ---
Subjective Date of Service: 07/15/24 Chief Complaint: Multiple falls Patient has has no new complaint No recorded fever. No reported agitation. Physical Examination - Vital Signs Temperature: 98.2 F Blood Pressure: 159/75 Pulse: 66 Respirations: 16 Pulse Ox (%): 97 - Studies Microbiology Data (last 24 hrs): 07/10/24 06:01 Blood - Blood Aerobic Blood Culture - Final No growth in 5 days. 07/10/24 06:01 Blood - Blood Anaerobic Blood Culture - Final Assessment And Plan - Plan Physical examination General: Oriented x1, NAD, Heart: Heart sounds 1 and 2 normal, regular rhythm, normal rate, no pedal edema Lungs: Clear to auscultation bilaterally, adequate breath sounds bilaterally, no rhonchi or crackles. Abdomen: Soft, nondistended, nontender, normal bowel sounds. Skin: Normal skin turgor, amputation stump wound looks clean. Neuro: No focal motor deficit. h. Psychiatry: No agitation. Diagnosis Multiple falls Acute kidney injury Type 2 diabetes mellitus with hyperglycemia Left leg wound PAD Hypertension Hyperlipidemia History of CVA Anemia History of left BKA Plan: Troponin trended negative. Blood cultures: No growth to date MRI of the brain showed no acute disease. No acute CVA Carotid ultrasound showed no hemodynamically significant stenosis. JON resolved with IV hydration. Patient condition likely related to declining dementia. Neurology consulted PT is evaluating patient Insulin sliding scale for glucose management Local wound care On Plavix and statin On Jardiance On tamsulosin Social service evaluating for SNF. 07/12 MRI of the brain is negative, acute CVA ruled out JON resolved Patient is tolerating diet He is needing maximum assistance with transfers. Spoke to patient's son patient looking forward to skilled rehab Continue Plavix and statin Continued home medications Social service consulted for SNF placement. Continue PT. 07/13 No major changes from yesterday. Patient is on Plavix and statin Continue other home medication Local wound care for amputation stump wound Continue PT Patient slated for SNF placement. 07/14 Patient with hyperglycemia Continue insulin sliding scale. Added Semglee insulin 12 units twice daily-patient's home dose Monitor blood sugar levels Continue local wound care Continue PT Awaiting SNF placement. 07/15 Blood sugar readings improved with patient's home insulin regimen. Glipizide is on hold. Serum creatinine trended up from yesterday. Encourage oral intake. Briefly hydrated with IV NS. Monitor renal function. Continue PT Local wound care-wound care consult placed. Social service evaluating for SNF placement. DVT prophylaxis with SCDs
[2024-07-15] MEDS: NA CHLORIDE 0.9% 1,000 ML IV SCH (13:20)
[2024-07-16] MEDS: INSULIN REGULAR (HUMAN) 100 UNIT/ML SQ SCH (07:30)
--- NOTE | 2024-07-16 07:43 | P.PN ---
Date of Service: 07/16/24 Subjective: feeling better today mentation improving, slow to respond but answering questions appropriately reports some dizziness at the time of his falls no events overnight afebrile Physical Exam: GEN: Alert, oriented, NAD CV: Regular rate and rhythm, no edema Pulm: Nonlabored respirations on room air, clear bilaterally ABD: soft, nontender, nondistended Integumentary: left BKA. 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 Reports some dizziness after falling from wheelchair. CT chest/abd (07/09): no acute traumatic findings. Slight angulation of the right posterior 10th and 11th ribs. Moderate prostatomegaly MRI brain was negative for acute CVA. Carotid u/s negative for hemodynamically significant stenosis Troponin's were negative x3. Creatinine 1.[address] Acosta, neurology consulted Patient's condition likely related to physical deconditioning / worsening dementia. /2 - JON resolved with IV hydration 5 - continue PT - slowly improving 07/15 - Creatinine slightly worse; s/p IVF 07/16 - Renal function improved. Mentation improving Family looking into SNF - [facility]; pending approval IDDM2 with hyperglycemia / - Semglee added 12u BID. Titrate as needed Glipizide is on hold. Chronic lower left extremity stump wound Chronic PAD History of left BKA [facility] consulted 07/13. Wound doesn't appear acutely infected. Left BKA stump clean. continue local wound care. continue PT Hypertension Hyperlipidemia History of CVA confirm home meds, restart as appropriate VTE: Lovenox Code: Full Dispo: SNF - pending approval Time Spent Managing Pts Care (In Minutes): 55
[2024-07-16] MEDS: AMLODIPINE 10 MG TAB PO SCH (08:36)
[2024-07-16] MEDS: ASPIRIN 81 MG CHEWABLE TABLET PO SCH (08:37)
[2024-07-16] MEDS: ENOXAPARIN 40 MG/0.4 ML SQ SCH (08:38)
[2024-07-17 09:02] LABS: Anion Gap 7.7 mEq/L (5.0-15.0); Magnesium 1.9 mg/dL (1.6-2.4); Potassium 3.7 mEq/L (3.5-5.1)
--- NOTE | 2024-07-17 10:07 | P.PN ---
Date of Service: 07/17/24 Subjective: when asked if hes feeling better or worse today, he states "worse" but is unable to elaborate further or explain whats worse worked with PT yesterday. vitals stable. No events overnight. Physical Exam: GEN: Alert, oriented, NAD CV: Regular rate and rhythm, no edema Pulm: Nonlabored respirations on room air, clear bilaterally ABD: soft, nontender, nondistended Integumentary: left BKA. 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 Reports some dizziness after falling from wheelchair. CT chest/abd (07/09): no acute traumatic findings. Slight angulation of the right posterior 10th and 11th ribs. Moderate prostatomegaly MRI brain was negative for acute CVA. Carotid u/s negative for hemodynamically significant stenosis Troponin's were negative x3. Creatinine 1.[address] Acosta, neurology consulted Patient's condition likely related to physical deconditioning / worsening dementia. 4/2 - JON resolved with IV hydration 5 - continue PT - slowly improving 07/15 - Creatinine slightly worse; s/p IVF 07/16 - Renal function improved. Mentation improving 07/17 - Renal function stable. OT consult Family looking into SNF - [facility]; pending approval/auth IDDM2 with hyperglycemia / - Semglee added 12u BID. Titrate as needed Glipizide is on hold. Chronic lower left extremity stump wound Chronic PAD History of left BKA [facility] consulted 07/13. Wound doesn't appear acutely infected. Left BKA stump clean. continue local wound care. continue PT Hypertension Hyperlipidemia History of CVA confirm home meds, restart as appropriate 07/16 - Home aspirin, amlodipine resumed VTE: Lovenox Code: Full Dispo: SNF - pending approval Time Spent Managing Pts Care (In Minutes): 55
[2024-07-18] MEDS: MEDIHONEY 44 ML TOPICAL TUBE TOP SCH (08:44)
--- NOTE | 2024-07-18 14:40 | P.PN ---
Date of Service: 07/18/24 Subjective: no acute events overnight stable denies any worsening/new problems Physical Exam: GEN: Alert, oriented, NAD, slow to answer CV: Regular rate and rhythm, no edema Pulm: Nonlabored respirations on room air, clear bilaterally Integumentary: left BKA. 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 Reports some dizziness after falling from wheelchair. CT chest/abd (07/09): no acute traumatic findings. Slight angulation of the right posterior 10th and 11th ribs. Moderate prostatomegaly MRI brain was negative for acute CVA. Carotid u/s negative for hemodynamically significant stenosis Troponin's were negative x3. Creatinine 1.[address] Acosta, neurology consulted Patient's condition likely related to physical deconditioning / possibly some worsening dementia. Family looking into SNF - [facility]; pending approval/auth 07/10 - JON resolved with IV hydration 07/13 - continue PT - slowly improving 07/15 - Creatinine slightly worse; s/p IVF 07/16 - Renal function improved. Mentation improving 07/17 - Renal function stable. OT consult 07/18 - peer to peer done this morning, pending final determination no acute changes, stable IDDM2 with hyperglycemia 07/14 - Semglee added 12u BID. Titrate as needed Glipizide is on hold. Chronic lower left extremity stump wound Chronic PAD History of left BKA [facility] consulted 07/13. Wound doesn't appear acutely infected. Left BKA stump clean. continue local wound care. continue PT Hypertension Hyperlipidemia History of CVA confirm home meds, restart as appropriate 07/16 - Home aspirin, amlodipine resumed VTE: Lovenox Code: Full Dispo: SNF - pending approval Time Spent Managing Pts Care (In Minutes): 45
[2024-07-19 07:47] LABS: Absolute Eosinophils 0.1 K/uL (0-0.5); Absolute Lymphocytes (CBC) 0.8 K/uL (0.7-4.9); Absolute Monocytes 1.1 K/uL (0.1-1.3); Absolute Neutrophil 4.2 K/uL (1.8-8.0); Basophils % 0.6 % (0-1.3); Eosinophils % 0.9 % (0-4.4); Hematocrit 26.2 % (39.6-49.0); Lymphocytes % 13.3 % (15.3-44.8); MCH 28.7 pg (27.0-35.0); MCHC 34.2 g/dL (32.0-36.0); MCV 83.8 fL (80-100); MPV 8.3 fL (7.6-11.3); Monocytes % 17.8 % (3.3-12.3); Neutrophils % 67.4 % (41.7-73.7); Platelets 365 thou/uL (152-406); RBC Red Blood Cell Count 3.13 M/uL (4.33-5.43); Red Cell Distribution Width 16.6 % (12.1-15.2)
[2024-07-19 08:04] LABS: ALT/SGPT 16 U/L (16-61); Albumin 2.2 g/dL (3.4-5.0); Albumin/Globulin Ratio 0.6 (1.1-1.8); Alkaline Phosphatase 78 U/L (45-117); Anion Gap 11.1 mEq/L (5.0-15.0); BUN Blood Urea Nitrogen 33 mg/dL (7-18); Bicarbonate 25 mEq/L (21-32); Bilirubin Total 0.2 mg/dL (0.2-1.0); Globulin 3.9 g/dL (2.3-3.5); Glomerular Filtration Rate 52 ml/min (=/>90); Glucose Level 184 mg/dL (74-106); Potassium 4.1 mEq/L (3.5-5.1); Protein, Total 6.1 g/dL (6.4-8.2); Sodium Level 139 mEq/L (136-145)
[2024-07-19 08:08] LABS: AST/SGOT < 10 U/L (15-37)
--- NOTE | 2024-07-19 11:51 | P.PN ---
Date of Service: 07/19/24 Subjective: no acute events overnight stable denies any worsening/new problems working with PT, deconditioned Physical Exam: GEN: Alert, oriented to self, NAD, slow to answer CV: Regular rate and rhythm, no edema Pulm: Nonlabored respirations on room air, clear bilaterally Integumentary: left BKA. 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 Reports some dizziness after falling from wheelchair. CT chest/abd (07/09): no acute traumatic findings. Slight angulation of the right posterior 10th and 11th ribs. Moderate prostatomegaly MRI brain was negative for acute CVA. Carotid u/s negative for hemodynamically significant stenosis Troponin's were negative x3. Creatinine 1.[address] Acosta, neurology consulted Patient's condition likely related to physical deconditioning / possibly some worsening dementia. Family looking into SNF - [facility]; pending approval/auth 07/10 - JON resolved with IV hydration 07/13 - continue PT - slowly improving 07/15 - Creatinine slightly worse; s/p IVF 07/16 - Renal function improved. Mentation improving 07/17 - Renal function stable. OT consult 07/18 - peer to peer done this morning, pending final determination no acute changes, stable 07/19 - stable, no changes, working with PT; awaiting auth IDDM2 with hyperglycemia 07/14 - Semglee added 12u BID. Titrate as needed Glipizide is on hold. Chronic lower left extremity stump wound Chronic PAD History of left BKA [facility] consulted 07/13. Wound doesn't appear acutely infected. Left BKA stump clean. continue local wound care. continue PT Hypertension Hyperlipidemia History of CVA confirm home meds, restart as appropriate 07/16 - Home aspirin, amlodipine resumed VTE: Lovenox Code: Full Dispo: SNF - pending insurance auth p2p done 07/18 Time Spent Managing Pts Care (In Minutes): 45
[2024-07-20] MEDS: ACETAMINOPHEN 500 MG TAB PO PRN (00:42)
[2024-07-20 07:56] VITALS: O2SAT 100
[2024-07-20 07:58] LABS: Absolute Eosinophils 0.1 K/uL (0-0.5); Absolute Lymphocytes (CBC) 1.1 K/uL (0.7-4.9); Absolute Monocytes 1.3 K/uL (0.1-1.3); Basophils % 0.3 % (0-1.3); Hematocrit 28.4 % (39.6-49.0); Hemoglobin 9.6 g/dL (13.6-17.9); Lymphocytes % 12.8 % (15.3-44.8); MCH 28.5 pg (27.0-35.0); MCHC 33.9 g/dL (32.0-36.0); MCV 84.2 fL (80-100); MPV 8.1 fL (7.6-11.3); Monocytes % 15.7 % (3.3-12.3); Neutrophils % 70.2 % (41.7-73.7); Nucleated Red Blood Cells % 0.1 % (0-0); Platelets 449 thou/uL (152-406); RBC Red Blood Cell Count 3.37 M/uL (4.33-5.43); Red Cell Distribution Width 16.6 % (12.1-15.2)
[2024-07-20 08:15] LABS: Anion Gap 8.1 mEq/L (5.0-15.0); Magnesium 2.2 mg/dL (1.6-2.4); Potassium 4.1 mEq/L (3.5-5.1)
[2024-07-20 12:21] VITALS: BP 133/54; TEMP 98.4
--- NOTE | 2024-07-20 12:26 | P.DS ---
Admission Date: 07/11/24 Discharge Date: 07/20/24 Disposition: DC HOME/HOME HEALTH CARE Discharge Condition: GOOD Reason for Admission: Multiple falls Brief History of Present Illness: 79yo M, PMH: hypertension, diabetes, hyperlipidemia, history of CVA, Patient presents after multiple falls from his wheelchair earlier today alongside metabolic encephalopathy. His son is at bedside and relates most of the history. He states earlier today he was at [facility] for his wound care appointment. On his way back he kept falling out of his wheelchair per EMS. He was brought down to [place]. EMS was concerned because he is nonverbal and kept falling over. His son states his ability to be verbal has declined significantly over the last couple of years. He has not been able to stand up since last July. 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 His son denies any recent changes including fevers, shortness of breath, or chest pain. He does have a wound on his left stump which has been improving. 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 Unclear exact etiology however suspect secondary to worsening dementia / physical deconditioning. CT chest/abdomen/pelvis was negative for any acute traumatic findings. MRI brain was negative for acute CVA. Carotid ultrasound was negative. Patient was noted to have a mild JON on admission with a serum creatinine of 1.60, which quickly resolved within 24 hours with IV hydration. Troponin's were negative x3. Rest of patient's labwork was unremarkable. Dr. Acosta, neurology was consulted and recommended patient follow up in 1 month for further management. No evidence to warrant further inpatient work up Patient worked with PT throughout hospitalization, who felt patient wound benefit from SNF for continued PT to improve strength/endurance to return to prior level of function prior to returning home. Patient was feeling better, mentation improved ~baseline, however continued with weakness. Insurance denied SNF authorization. Family decided to take patient back home with home health / caregiver. Throughout hospitalization patient reported improvement, and doing well, without any new/worsening symptoms, except for ongoing weakness. He was continued on wound care for his left lower extremity wound which did not show any evidence of infection. His renal function did fluctuate, with creatinine 1.2 to 1.6. With his current weakness / physicial limitation, he was having difficulty feeding himself and lead to some decreased intake at times, which contributed to this fluctuation. The night before discharge, patient did have a low grade temperature of 100.7 which resolved with tylenol and he remained afebrile the rest of the following day. There was no leukocytosis and procalcitonin was normal. He denied any new/worsening symptoms. No cough, no dyuria, no new pains. His wound did not have any signs of infection. Nursing staff did report his room was warmer than usual and he was bundled under blankets which could have lead to the skin temperature of 100.7 Medications: continue home meds as previously prescribed Follow up: PCP 3-[address] Acosta, Neurology in 1 month Please call to schedule / confirm appointments Physical Exam: GEN: Alert, awake, NAD CV: Regular rate and rhythm, no edema Pulm: Nonlabored respirations on room air, clear bilaterally Integumentary: left BKA. Amputation stump with dressing c/d/i Vital Signs/Physical Exam: Temp Pulse Resp BP Pulse Ox 98.4 F 67 18 133/54 L 99 07/20/24 12:00 07/20/24 12:00 07/20/24 12:00 07/20/24 12:00 07/20/24 12:00 Laboratory Data at Discharge: WBC 8.50 thou/uL (4.3-10.9) 07/20/24 07:39 Hgb 9.6 g/dL (13.6-17.9) L 07/20/24 07:39 Hct 28.4 % (39.6-49.0) L 07/20/24 07:39 Plt Count 449 thou/uL (152-406) H 07/20/24 07:39 PT 11.4 SECONDS (10-13.0) 07/09/24 15:29 INR 1.00 07/09/24 15:29 Sodium 140 mEq/L (136-145) 07/20/24 07:39 Potassium 4.1 mEq/L (3.5-5.1) 07/20/24 07:39 BUN 39 mg/dL (7-18) H 07/20/24 07:39 Creatinine 1.49 mg/dL (0.70-1.30) H 07/20/24 07:39 Glucose 158 mg/dL (74-106) H 07/20/24 07:39 Magnesium 2.2 mg/dL (1.6-2.4) 07/20/24 07:39 Total Bilirubin 0.2 mg/dL (0.2-1.0) 07/19/24 07:27 AST < 10 U/L (15-37) L 07/19/24 07:27 ALT 16 U/L (16-61) 07/19/24 07:27 Alkaline Phosphatase 78 U/L (45-117) 07/19/24 07:27 Lipase 31 U/L (13-75) 07/09/24 15:29 Home Medications: lisinopriL [Prinivil*] 20 mg PO DAILY 03/15/14 Metformin HCl 1,000 mg PO BIDWM 07/06/18 Nateglinide [Starlix*] 1 tab PO DAILY 07/06/18 Atorvastatin Calcium [Lipitor] 40 mg PO BEDTIME #30 tab 07/08/18 Clopidogrel Bisulfate [Plavix*] 75 mg PO DAILY #30 tablet 07/08/18 Tamsulosin HCl [Flomax] 0.4 mg PO DAILY 09/05/23 glipiZIDE [Glipizide] 5 mg PO DAILY 09/05/23 Amlodipine [Norvasc*] 10 mg PO DAILY 07/10/24 Aspirin [Vazalore] 81 mg PO DAILY 07/10/24 Insulin Degludec [Tresiba] 12 units SQ BEDTIME 07/10/24 Metoprolol Succinate 50 mg PO BID 07/10/24 Physician Discharge Instructions: Physician discharge instructions: Patient presented with weakness, fatigue, confusion after multiple falls from his wheelchair. Unclear exact etiology however suspect secondary to worsening dementia / physical deconditioning. CT chest/abdomen/pelvis was negative for any acute traumatic findings. MRI brain was negative for acute CVA. Carotid ultrasound was negative. Patient was noted to have a mild JON on admission with a serum creatinine of 1.60, which quickly resolved within 24 hours with IV hydration. Troponin's were negative x3. Rest of patient's labwork was unremarkable. Dr. Acosta, neurology was consulted and recommended patient follow up in 1 month for further management. No evidence to warrant further inpatient work up Patient worked with PT throughout hospitalization, who felt patient wound benefit from SNF for continued PT to improve strength/endurance to return to ana or level of function prior to returning home. Patient was feeling better, mentation improved ~baseline, however continued with weakness. Insurance denied SNF authorization. Family decided to take patient back home with home health / caregiver. Throughout hospitalization patient reported improvement, and doing well, without any new/worsening symptoms, except for ongoing weakness. He was continued on wound care for his left lower extremity wound which did not show any evidence of infection. His renal function did fluctuate, with creatinine 1.2 to 1.6. With his current weakness / physicial limitation, he was having difficulty feeding himself and lead to some decreased intake at times, which contributed to this fluctuation. The night before discharge, patient did have a low grade temperature of 100.7 which resolved with tylenol and he remained afebrile the rest of the following day. There was no leukocytosis and procalcitonin was normal. He denied any new/worsening symptoms. No cough, no dyuria, no new pains. His wound did not have any signs of infection. Nursing staff did report his room was warmer than usual and he was bundled under blankets which could have lead to the skin temperature of 100.7 Medications: continue home meds as previously prescribed Follow up: PCP 3-[address] Acosta, Neurology in 1 month Please call to schedule / confirm appointments Followup: Flora MUNROEOT [Primary Care Provider] - Time spent managing pt's care (in minutes): 45
== END 2024-07-20 16:12 | disposition home health service (06) | DRG 884 ==
LOC: ER 14:48 → ERHOLD 19:18 → 4TH 20:37 → OBSVTOIN 07-11 09:05 → 4TH 07-12 18:44
PROVIDERS: ADMIT Family Medicine; ATTEND Hospitalist
DX: F03.90 Unspecified dementia, unspecified severity, without behavioral disturbance, psychotic disturbance, mood disturbance, and anxiety (principal); G93.41 Metabolic encephalopathy; N17.9 Acute kidney failure, unspecified; I10 Essential (primary) hypertension; E78.00 Pure hypercholesterolemia, unspecified; E11.65 Type 2 diabetes mellitus with hyperglycemia; E11.51 Type 2 diabetes mellitus with diabetic peripheral angiopathy without gangrene; D64.9 Anemia, unspecified; E86.0 Dehydration; E78.5 Hyperlipidemia, unspecified; R29.6 Repeated falls; Z91.81 History of falling; Z79.84 Long term (current) use of oral hypoglycemic drugs; Z79.02 Long term (current) use of antithrombotics/antiplatelets; Z86.73 Personal history of transient ischemic attack (TIA), and cerebral infarction without residual deficits; Z89.512 Acquired absence of left leg below knee; Z89.421 Acquired absence of other right toe(s); Z79.899 Other long term (current) drug therapy; W05.0XXA Fall from non-moving wheelchair, initial encounter; Y93.9 Activity, unspecified; Y92.009 Unspecified place in unspecified non-institutional (private) residence as the place of occurrence of the external cause; Y99.9 Unspecified external cause status
CPT/HCPCS: 36415; 51702; 70450; 70553; 71045; 71250; 72125; 74176; 80048; 80053; 80076; 81001; 82140; 82947; 83690; 83735; 83880; 84145; 84484; 85025; 85610; 87040; 93005; 93880; 96361; 96365; 96375; 97110; 97161; 97165; 97530; 99285; A9577; G0378; J0360; J1650; J1815; J7030

== ENCOUNTER 2024-08-04 08:50 | Emergency (ER) | payer OTHER ==
[2024-08-04] MEDS ORDERED: CEFTRIAXONE 1000 MG/VIAL ONE (09:28)
[2024-08-04] MEDS ORDERED: NA CHLORIDE 0.9% 50 ML ONE (09:29)
[2024-08-04 09:37] LABS: Absolute Lymphocytes (CBC) 0.9 K/uL (0.7-4.9); Absolute Monocytes 0.6 K/uL (0.1-1.3); Absolute Neutrophil 13.8 K/uL (1.8-8.0); Basophils % 0.3 % (0-1.3); Hematocrit 21.4 % (39.6-49.0); Hemoglobin 7.1 g/dL (13.6-17.9); Lymphocytes % 5.8 % (15.3-44.8); MCH 28.4 pg (27.0-35.0); MPV 9.7 fL (7.6-11.3); Monocytes % 3.6 % (3.3-12.3); Neutrophils % 90.3 % (41.7-73.7); Platelets 451 thou/uL (152-406); RBC Red Blood Cell Count 2.49 M/uL (4.33-5.43); Red Cell Distribution Width 15.7 % (12.1-15.2)
[2024-08-04 09:42] LABS: PT Prothrombin Time 12.4 SECONDS (10-13.0); Protime INR 1.09
[2024-08-04 09:59] LABS: ALT/SGPT 23 U/L (16-61); AST/SGOT 19 U/L (15-37); Alkaline Phosphatase 75 U/L (45-117); Anion Gap 16.1 mEq/L (5.0-15.0); BUN Blood Urea Nitrogen 46 mg/dL (7-18); Bicarbonate 24 mEq/L (21-32); Bilirubin Total 0.2 mg/dL (0.2-1.0); Glomerular Filtration Rate 35 ml/min (=/>90); Glucose Level 249 mg/dL (74-106); Sodium Level 140 mEq/L (136-145)
[2024-08-04 10:00] LABS: Albumin 2.5 g/dL (3.4-5.0); Albumin/Globulin Ratio 0.7 (1.1-1.8); Globulin 3.6 g/dL (2.3-3.5); Lipase 24 U/L (13-75); Magnesium 1.7 mg/dL (1.6-2.4); NT PRO-BNP 2984 pg/mL (<450); Protein, Total 6.1 g/dL (6.4-8.2); Troponin High Sensitivity 19.2 pg/mL (<58.9)
[2024-08-04 10:03] LABS: Bilirubin Direct < 0.2 mg/dL (0-0.2)
[2024-08-04 10:07] LABS: Potassium 6.1 mEq/L (3.5-5.1)
[2024-08-04] MEDS ORDERED: LIDOCAINE VISCOUS 2% 10ML ORAL SOLN ONE (10:08)
--- NOTE | 2024-08-04 10:13 | RAD REPORT ---
EXAM: CT CHEST, ABDOMEN AND PELVIS WITHOUT CONTRAST CLINICAL INDICATION: hematuria TECHNIQUE: CT chest, abdomen and pelvis was performed without contrast, as per department protocol. A xial, sagittal and coronal reconstructions were obtained. One or more of the following dose reduction techniques were used: Automated exposure control, adjustment of the mA and/or kV according to patient size, and/or iterative reconstruction. Unless otherwise specified, incidental findings do not require dedicated imaging follow-up. Examination is limited by the lack of intravenous contrast material. COMPARISON: 07/09/2024 FINDINGS: LUNGS: No evidence of airspace or interstitial process. No nodules. PLEURA: No pleural effusion. No pneumothorax. MEDIASTINUM AND LYMPH NODES: No mediastinal mass or fluid collection. Normal size mediastinal, hilar, and axillary lymph nodes. OSSEOUS STRUCTURES AND CHEST WALL: Intact. LIVER: Normal in size and contour. No focal lesion or biliary dilatation. Cholelithiasis. PANCREAS: No mass, ductal dilation, or [place]-pancreatic fluid. SPLEEN: Normal size. No focal lesion. ADRENALS: Normal; no mass. KIDNEYS: Mild left-sided hydronephrosis and hydroureter. URINARY BLADDER: High-density material is present within large 5 cm lobulated intraluminal filling de fect presumably related to prostate gland. GASTROINTESTINAL TRACT: No bowel obstruction, free air, significant free fluid or abscess. Moderate stool is present throughout the colon. APPENDIX: Normal appendix. LYMPH NODES: No lymphadenopathy. MUSCULOSKELETAL: Mild multilevel degenerative changes. OTHER: Aortoiliac atherosclerosis. IMPRESSION: Large 5 cm lobulated mass lesion projecting in the urinary bladder presumably related to significant prostate enlargement but indeterminant. There is moderate left hydronephrosis. High-density material is also present in the urinary bladder. Follow-up direct visualization with cystoscopy would be advised. Cholelithiasis.
--- NOTE | 2024-08-04 10:32 | RAD REPORT ---
EXAMINATION: ONE VIEW CHEST XR CLINICAL INDICATION: ABDOMINAL DISTENTION TECHNIQUE: Frontal chest projection is submitted. Examination is limited by patient positioning and t echnique. COMPARISON: 07/09/2024 FINDINGS: The lungs are well inflated and clear. The heart is normal in size. No displaced fractures identified . IMPRESSION: No acute intrathoracic abnormalities.
[2024-08-04] MEDS ORDERED: ONDANSETRON 4 MG/2 ML VIAL ONE (10:40)
[2024-08-04] MEDS ORDERED: SOD POLYSTYREN SUL 15 GM/60 ML UCUP ONE (10:41)
[2024-08-04] MEDS ORDERED: FENTANYL CITR 100 MCG/2 ML ONE (10:41)
--- NOTE | 2024-08-04 10:43 | EDPHYS ---
Physician Documentation [facility] Name: Dajuan Estrada Age: 79 yrs Sex: Male : 1945 Arrival Date: 08/04/2024 Time: 08:50 Bed 4 Private MD: ED Physician Ed Barber HPI: 08/04 09:51 This 79 yrs old Male presents to ER via EMS with complaints of penile bleeding.smiley 09:51 The patient presents with urinary symptoms, dysuria, gross blood. Onset: The smiley symptoms/episode began/occurred this morning, today. Modifying factors: The symptoms are alleviated by nothing, the symptoms are aggravated by nothing. Associated signs and symptoms: The patient has no apparent associated signs or symptoms. Severity of symptoms: At their worst the symptoms were moderate, in the emergency department the symptoms are unchanged. The patient has not experienced similar symptoms in the past. Historical: - Allergies: 09:13 No Known Allergies; ss - PMHx: 09:13 Diabetes - NIDDM; High Cholesterol; Hypertension; ss - PSHx: : prostate sx; ss - Immunization history:: Adult Immunizations unknown. - Infectious Disease History:: Denies. - Social history:: Smoking status: Patient denies any tobacco usage or history of. ROS: :52 Constitutional: Negative for fever, chills, and weight loss, Eyes: Negative for injury, smiley pain, redness, and discharge, ENT: Negative for injury, pain, and discharge, Neck: Negative for injury, pain, and swelling, Cardiovascular: Negative for chest pain, palpitations, and edema, Respiratory: Negative for shortness of breath, cough, wheezing, and pleuritic chest pain, Abdomen/GI: Negative for abdominal pain, nausea, vomiting, diarrhea, and constipation, Back: Negative for injury and pain, MS/Extremity: Negative for injury and deformity, Skin: Negative for injury, rash, and discoloration, Neuro: Negative for headache, weakness, numbness, tingling, and seizure, Psych: Negative for depression, anxiety, suicide ideation, homicidal ideation, and hallucinations, Allergy/Immunology: Negative for hives, rash, and allergies, Endocrine: Negative for neck swelling, polydipsia, polyuria, polyphagia, and marked weight changes, :52 : Positive for hematuria, Exam: 09:52 Constitutional: This is a well developed, well nourished patient who is awake, alert, smiley and in no acute distress. Head/Face: Normocephalic, atraumatic. Eyes: Pupils equal round and reactive to light, extra-ocular motions intact. Lids and lashes normal. Conjunctiva and sclera are non-icteric and not injected. Cornea within normal limits. Periorbital areas with no swelling, redness, or edema. ENT: Nares patent. No nasal discharge, no septal abnormalities noted. Tympanic membranes are normal and external auditory canals are clear. Oropharynx with no redness, swelling, or masses, exudates, or evidence of obstruction, uvula midline. Mucous membranes moist. Neck: Trachea midline, no thyromegaly or masses palpated, and no cervical lymphadenopathy. Supple, full range of motion without nuchal rigidity, or vertebral point tenderness. No Meningismus. Chest/axilla: Normal chest wall appearance and motion. Nontender with no deformity. No lesions are appreciated. Cardiovascular: Regular rate and rhythm with a normal S1 and S2. No gallops, murmurs, or rubs. Normal PMI, no JVD. No pulse deficits. Respiratory: Lungs have equal breath sounds bilaterally, clear to auscultation and percussion. No rales, rhonchi or wheezes noted. No increased work of breathing, no retractions or nasal flaring. Abdomen/GI: Soft, non-tender, with normal bowel sounds. No distension or tympany. No guarding or rebound. No evidence of tenderness throughout. Back: No spinal tenderness. No costovertebral tenderness. Full range of motion. Skin: Warm, dry with normal turgor. Normal color with no rashes, no lesions, and no evidence of cellulitis. MS/ Extremity: Pulses equal, no cyanosis. Neurovascular intact. Full, normal range of motion., bilateral aka Neuro: Awake and alert, GCS 15, oriented to person, place, time, and situation. Cranial nerves II-XII grossly intact. Motor strength 5/5 in all extremities. Sensory grossly intact. Cerebellar exam normal. Normal gait. Psych: Awake, alert, with orientation to person, place and time. Behavior, mood, and affect are within normal limits. 09:52 : CVA tenderness, is absent, Male external genitalia: normal, Bladder: distension, that is moderate, Sexual behavior: the patient is not sexually active, 12:39 ECG was reviewed by the Attending Physician. [facility] Vital Signs: 08:52 BP 113 / 55; Pulse 65; Resp 16; Pulse Ox 100% on R/A; Weight 77.11 kg; Pain 8/10; ss 10:00 BP 105 / 57; Pulse 67; Resp 18; Pulse Ox 100% on R/A; ph 11:14 BP 125 / 50; Pulse 65; Resp 18; Pulse Ox 100% on Nebulizer Mask; ph 12:00 BP 129 / 58; Pulse 72; Resp 18; Pulse Ox 100% on R/A; ph 12:46 BP 105 / 54; Pulse 69; Resp 18; Pulse Ox 100% on R/A; ph 14:10 BP 122 / 57; Pulse 69; Resp 18; Temp 97.1; Pulse Ox 98% ; ph 15:00 BP 143 / 61; Pulse 71; Resp 19; Pulse Ox 100% on R/A; ph 16:00 BP 150 / 75; Pulse 69; Resp 14; Pulse Ox 98% on R/A; ph 17:15 BP 143 / 72; Pulse 72; Resp 18; Pulse Ox 98% on R/A; ph 18:06 BP 145 / 76; Pulse 72; Resp 18; Temp 97.8; Pulse Ox 100% ; ph 08:52 Pain Scale: Adult ss MDM: 08:53 Medical Screening Exam initiated smiley 09:54 Differential diagnosis: nonspecific abdominal pain, UTI, urinary retention, Orozco smiley catheter problem, prostatitis, urethritis. Differential Diagnosis sepsis. Data reviewed: vital signs, nurses notes, lab test result(s), EKG, radiologic studies, plain films. Consideration of Admission/Observation Escalation of care including admission/observation considered. I considered the following discharge prescriptions or medication management in the emergency department Medications were administered in the Emergency Department. See MAR. Independent interpretation of the following test(s) in the Emergency Department EKG: See my EKG interpretation above. Test considered but Not performed: Ultrasound no abd usg. Care significantly affected by the following chronic conditions: Diabetes, Hypertension, high cholesteropl. 08/04 08:56 Order name: Basic Metabolic Panel; Complete Time: 10:23 [facility] 08/04 08:56 Order name: CBC with Diff; Complete Time: 10:23 [facility] 08/04 08:56 Order name: LFT's; Complete Time: 10:23 08/04 08:56 Order name: Magnesium; Complete Time: 10:23 08/04 08:56 Order name: NT PRO-BNP; Complete Time: 10:23 08/04 08:56 Order name: PT-INR; Complete Time: 10:23 08/04 08:56 Order name: Troponin HS; Complete Time: 10:23 08/04 08:56 Order name: Lipase; Complete Time: 10:23 08/04 08:56 Order name: Urinalysis w/ reflexes; Complete Time: 13:21 08/04 08:57 Order name: Type And Screen [facility] 08/04 12:01 Order name: BMP; Complete Time: 14:56 [facility] 08/04 12:22 Order name: ABO/RH no charge; Complete Time: 13:21 EDMD 08/04 12:27 Order name: Packed RBC Leukored [facility] 08/04 12:53 Order name: Urine Culture [facility] 08/04 08:56 Order name: XRAY Chest (1 view); Complete Time: 10:43 08/04 08:57 Order name: CT Chest Abdomen Pelvis W/O Contrast; Complete Time: 10:23 08/04 08:56 Order name: Cardiac monitoring; Complete Time: 09:26 08/04 08:56 Order name: EKG - Nurse/Tech; Complete Time: 11:53 08/04 08:56 Order name: IV Saline Lock; Complete Time: 09:16 08/04 08:56 Order name: Labs collected and sent; Complete Time: 09:26 08/04 08:56 Order name: O2 Per Protocol; Complete Time: 09:16 08/04 08:56 Order name: O2 Sat Monitoring; Complete Time: 09:16 08/04 08:56 Order name: IV Saline Lock - Large Bore; Complete Time: 09:17 08/04 09:09 Order name: Orozco: gray silicone; Complete Time: 10:37 08/04 10:36 Order name: Misc. Order: continuous cbi; Complete Time: 10:37 08/04 10:36 Order name: Transfuse; Complete Time: 18:06 smiley EC:39 Rate is 75 beats/min. Rhythm is regular. QRS [place] is Normal. [place] interval is normal. QRS smiley interval is normal. QT interval is normal. No Q waves. T waves are Normal. No ST changes noted. Clinical impression: NSR w/ Non-specific ST/T Changes and No evidence of ischemia. Interpreted by me. Reviewed by me. Administered Medications: 10:15 Drug: NS 0.9% IV 1000 ml IV at 1 bolus Per protocol; to be given as a bolus over 60 ph minutes Route: IV; Rate: 1 bolus; Site: right forearm; 11:30 Follow up: Response: No adverse reaction; IV Status: Completed infusion; IV Intake: ph 1000ml 11:13 Drug: Rocephin IV 1 grams IV at per protocol once; Given slow IV push per pharmacy ph instructions Route: IV; Rate: per protocol; Site: right forearm; 11:45 Follow up: Response: No adverse reaction; IV Status: Completed infusion ph 11:13 Drug: Kayexalate PO 45 grams PO once Route: PO; ph 16:30 Follow up: Response: No adverse reaction ph 18:20 Follow up: Response: No adverse reaction ph 11:13 Drug: Albuterol Inhalation 5 mg Inhalation once Route: Inhalation; ph 18:20 Follow up: Response: No adverse reaction ph 11:35 Drug: fentaNYL (PF) IVP 25 mcg IVP once Route: IVP; Site: right forearm; ph 18:20 Follow up: Response: No adverse reaction ph 13:00 Drug: fentaNYL (PF) IVP 25 mcg IVP once Route: IVP; Site: right forearm; ph 18:20 Follow up: Response: No adverse reaction ph 17:45 Drug: fentaNYL (PF) IVP 50 mcg IVP once Route: IVP; Site: right forearm; ph 18:20 Follow up: Response: No adverse reaction ph Disposition Summary: 08/04/24 10:42 Transfer Ordered Notes: Transfer Location: [facility] smiley Reason: Higher level of care smiley Condition: Fair smiley Problem: new smiley Symptoms: have improved smiley Accepting Physician: to [facility](08/04/24 19:21) ph Diagnosis - Unspecified kidney failure smiley - Gross hematuria smiley - Acute posthemorrhagic anemia smiley - Elevated white blood cell count smiely - Hyperkalemia smiley Forms: - Medication Reconciliation Form smiley - SBAR form smiley Signatures: Dispatcher [employer] EDEd Burgess MD MD cha Blanchard, Shelby, RN RN ss Britt Riley, RN RN ph Corrections: (The following items were deleted from the chart) 08:57 08:57 BASIC METABOLIC PANEL+C.LAB.BRZ ordered. EDMS EDMS 08:57 08:57 CBC+H.LAB.BRZ ordered. EDMS EDMS 08:57 08:57 HEPATIC FUNCTION+C.LAB.BRZ ordered. EDMS EDMS 08:57 08:57 MAGNESIUM+C.LAB.BRZ ordered. EDMS EDMS 08:57 08:57 PROBNP+C.LAB.BRZ ordered. EDMS EDMS 08:57 08:57 PROTIME (+INR)+COAG.LAB.BRZ ordered. EDMS EDMS 08:57 08:57 Troponin High Sensitivity+C.LAB.BRZ ordered. EDMS EDMS 08:57 08:57 LIPASE+C.LAB.BRZ ordered. EDMS EDMS 08:57 08:57 Urinalysis+U.LAB.BRZ ordered. EDMS EDMS 08:57 08:57 Chest Single View+RAD.RAD.BRZ ordered. 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 EDMS EDMS 18:40 10:36 PACKED RBC LEUKORED+BB.LAB.BRZ ordered. EDMS EDMS 18:40 10:38 ABO/RH typing ordered. EDMS EDMS 18:40 10:38 Antibody Screen ordered. EDMS EDMS 19:21 10:42 to [facility] smiley ph
--- NOTE | 2024-08-04 10:43 | ER ---
Nurse's Notes [facility] Name: Dajuan Estrada Age: 79 yrs Sex: Male : 1945 Arrival Date: 08/04/2024 Time: 08:50 Bed 4 Private MD: Diagnosis: Unspecified kidney failure;Gross hematuria;Acute posthemorrhagic anemia;Elevated white blood cell count;Hyperkalemia Presentation: 08/04 08:52 Chief complaint: EMS states: bleeding from penis since this morning. Coronavirus ss screen: Client denies travel out of the [place] in the last 14 days. Ebola Screen: Patient denies exposure to infectious person. Patient denies travel to an Ebola-affected area in the 21 days before illness onset. Initial Sepsis Screen: Does the patient meet any 2 criteria? No. Patient's initial sepsis screen is negative. Does the patient have a suspected source of infection? No. Patient's initial sepsis screen is negative. Risk Assessment: Do you want to hurt yourself or someone else? Patient reports no desire to harm self or others. Onset of symptoms was August 04, 2024. 08:52 Method Of Arrival: EMS: [facility] ss 08:52 Acuity: DARIA 3 ss Triage Assessment: 11:15 General: Behavior is. ph Historical: - Allergies: 09:13 No Known Allergies; ss - PMHx: 09:13 Diabetes - NIDDM; High Cholesterol; Hypertension; ss - PSHx: 09:13 prostate sx; ss - Immunization history:: Adult Immunizations unknown. - Infectious Disease History:: Denies. - Social history:: Smoking status: Patient denies any tobacco usage or history of. Screenin:[address] [facility] ED Fall Risk Assessment (Adult) History of falling in the last 3 months, ph including since admission No falls in past 3 months (0 pts) Confusion or Disorientation No (0 pts) Intoxicated or Sedated No (0 pts) Impaired Gait Yes (1 pt) Mobility Assist Device Used Yes (1 pt) Altered Elimination Yes (1 pt) Score/Fall Risk Level 3 or more points = High Risk Oriented to surroundings, Maintained a safe environment, Hourly rounding (assess needs \T\ fall precautionary measures) done, Used ambulatory aids as needed (educated on \T\ assisted with). Abuse screen: Denies threats or abuse. Denies injuries from another. Nutritional screening: No deficits noted. Tuberculosis screening: No symptoms or risk factors identified. Assessment: 09:30 General: Appears in no apparent distress. uncomfortable, slender, Behavior is calm, ph cooperative, appropriate for age. Pain: Complains of pain in pelvis. Neuro: Level of Consciousness is awake, alert, obeys commands, Oriented to person, place, situation. Cardiovascular: Capillary refill < 3 seconds in bilateral fingers Patient's skin is warm and dry. Respiratory: Airway is patent Respiratory effort is even, unlabored. GI: No signs and/or symptoms were reported involving the gastrointestinal system. : bright red blood noted to be oozing from penis. Derm: Skin is pink, warm \T\ dry. Musculoskeletal: Circulation, motion, and sensation intact. Range of motion: intact in all extremities. 11:00 Reassessment: Patient appears in no apparent distress at this time. Patient and/or ph family updated on plan of care and expected duration. Pain level reassessed. Patient is alert, oriented x 3, equal unlabored respirations, skin warm/dry/pink. 12:30 Reassessment: Patient appears in no apparent distress at this time. Patient and/or ph family updated on plan of care and expected duration. Pain level reassessed. Patient is alert, oriented x 3, equal unlabored respirations, skin warm/dry/pink. 14:00 Reassessment: Patient appears in no apparent distress at this time. No changes from previously documented assessment. Patient and/or family updated on plan of care and expected duration. Pain level reassessed. Patient is alert, oriented x 3, equal unlabored respirations, skin warm/dry/pink. 18:18 Reassessment: Patient appears in no apparent distress at this time. Patient and/or ph family updated on plan of care and expected duration. Pain level reassessed. Patient is alert, oriented x 3, equal unlabored respirations, skin warm/dry/pink. Report called to ANIL Hollis at [facility]. Vital Signs: 08:52 BP 113 / 55; Pulse 65; Resp 16; Pulse Ox 100% on R/A; Weight 77.11 kg; Pain 8/10; ss 10:00 BP 105 / 57; Pulse 67; Resp 18; Pulse Ox 100% on R/A; ph 11:14 BP 125 / 50; Pulse 65; Resp 18; Pulse Ox 100% on Nebulizer Mask; ph 12:00 BP 129 / 58; Pulse 72; Resp 18; Pulse Ox 100% on R/A; ph 12:46 BP 105 / 54; Pulse 69; Resp 18; Pulse Ox 100% on R/A; ph 14:10 BP 122 / 57; Pulse 69; Resp 18; Temp 97.1; Pulse Ox 98% ; ph 15:00 BP 143 / 61; Pulse 71; Resp 19; Pulse Ox 100% on R/A; ph 16:00 BP 150 / 75; Pulse 69; Resp 14; Pulse Ox 98% on R/A; ph 17:15 BP 143 / 72; Pulse 72; Resp 18; Pulse Ox 98% on R/A; ph 18:06 BP 145 / 76; Pulse 72; Resp 18; Temp 97.8; Pulse Ox 100% ; ph 08:52 Pain Scale: Adult ss ED Course: 08:52 Patient arrived in ED. eb 08:53 Ed Barber MD is Attending Physician. smiley 08:54 Britt Riley, ANIL is Primary Nurse. ph 09:13 Triage completed. ss 09:13 Arm band placed on right wrist. ss 09:20 Maintain EMS IV. Dressing intact. Site clean \T\ dry. Gauge \T\ site: 20G to R FA . Flushed aa 5 with 10 mL NS. 09:23 Initial lab(s) drawn, by me, sent to lab. T\T\S collected, blood band applied to patient. aa5 Inserted saline lock: 20 gauge in right wrist, using aseptic technique. Blood collected. Flushed with 10 mL NS. 09:44 CT Chest Abdomen Pelvis W/O Contrast In Process Unspecified. EDMS 10:15 Urine collected: Orozco catheter specimen, maría blood. 3-way catheter inserted, using ph sterile technique, 20 Fr. Returned bloody urine. 10:21 XRAY Chest (1 view) In Process Unspecified. EDMS 10:38 attempted to initiate a transfer with the [facility] Transfer center placed on auto eb hold then called disconnected after 4 minutes. 10:46 initiated a transfer with the [facility] transfer [place]/ per transfer center they are eb really busy and it will be a minute. 11:30 EKG done, by ED staff, reviewed by Ed Barber MD. ph 12:04 initiated a transfer with Suzie from the [facility] assistant executive housekeeper holden at the request of the family/ per [employer] they are at capacity and will have to decline the patient in transfer/. 12:48 Bladder irrigated via Orozco normal saline returned maría blood. ph 13:22 called the [facility] center/ per Felicia they are waiting for the urologist to call them back. 13:[address] Scott the urologist building insulation supervisor for [facility] with Dr. Barber for eb patient transfer consultation. 14:56 connected the hospitalist building insulation supervisor for [facility] with Dr. Barber for patient eb transfer consultation. 16:18 administrative approval given by Felicia Parekh/ patient has been accepted to [facility] bed 1022 / Dr. Jenni Posada has accepted the patient in transfer/ report to be called to [phone]. 16:26 Patient has correct armband on for positive identification. Bed in low position. Call ph light in reach. Side rails up X2. Client placed on continuous cardiac and pulse oximetry monitoring. NIBP monitoring applied. monitoring specialist on. 18:07 Bladder irrigated via Orozco with TOTAL OF 9 LITERS normal saline. ph 18:22 No provider procedures requiring assistance completed. Patient transferred, IV remains ph in place. Administered Medications: 10:15 Drug: NS 0.9% IV 1000 ml IV at 1 bolus Per protocol; to be given as a bolus over 60 ph minutes Route: IV; Rate: 1 bolus; Site: right forearm; 11:30 Follow up: Response: No adverse reaction; IV Status: Completed infusion; IV Intake: ph 1000ml 11:13 Drug: Rocephin IV 1 grams IV at per protocol once; Given slow IV push per pharmacy ph instructions Route: IV; Rate: per protocol; Site: right forearm; 11:45 Follow up: Response: No adverse reaction; IV Status: Completed infusion ph 11:13 Drug: Kayexalate PO 45 grams PO once Route: PO; ph 16:30 Follow up: Response: No adverse reaction ph 18:20 Follow up: Response: No adverse reaction ph 11:13 Drug: Albuterol Inhalation 5 mg Inhalation once Route: Inhalation; ph 18:20 Follow up: Response: No adverse reaction ph 11:35 Drug: fentaNYL (PF) IVP 25 mcg IVP once Route: IVP; Site: right forearm; ph 18:20 Follow up: Response: No adverse reaction ph 13:00 Drug: fentaNYL (PF) IVP 25 mcg IVP once Route: IVP; Site: right forearm; ph 18:20 Follow up: Response: No adverse reaction ph 17:45 Drug: fentaNYL (PF) IVP 50 mcg IVP once Route: IVP; Site: right forearm; ph 18:20 Follow up: Response: No adverse reaction ph Medication: 14:05 Blood products: PRBCs X 1 unit given. ph 16:26 VIS not applicable for this client. ph 17:25 Blood products: PRBCs X 1 unit given. ph Intake: 11:30 IV: 1000ml; Total: 1000ml. ph Output: 12:53 Urine: 2000ml (Orozco); Total: 2000ml. ph 14:30 Urine: 2000ml (Orozco); Total: 4000ml. ph 16:30 Urine: 2000ml (Orozco); Total: 6000ml. ph 18:06 Urine: 1400ml (Orozco); Total: 7400ml. ph Outcome: 10:42 ER care complete, transfer ordered by . smiley 18:23 Condition: stable ph 19:21 Transferred by [facility]. to [facility], Transfer form ph completed. X-rays sent w/ patient. 19:21 Instructed on the need for transfer, 19:21 Patient left the ED. 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 Transfer center placed on eb auto hold then called disconnected after 4 minutes eb 11:02 11:00 initiated a transfer with the [facility] transfer center/ per transfer center eb they are really busy and it will be a minute eb 18: 18:22 Patient admitted, IV remains in place. ph ph
[2024-08-04] MEDS ORDERED: ALBUTEROL 2.5 MG/3 ML NEB SOL ONE (11:02)
[2024-08-04 12:43] LABS: Sqamous Epithelial None Seen /HPF (None Seen); Urine Bacteria None Seen /HPF (<20); Urine Microscopic Reflex YN ORDER UMIC; Urine RBC >50 /HPF (None Seen); Urine WBC >50 /HPF (<5)
[2024-08-04 12:46] LABS: Specific Gravity ND (1.005-1.030); Urine Bilirubin ND (Negative); Urine Blood ND (Negative); Urine Clarity ND (Clear); Urine Glucose ND (Negative); Urine Ketones ND (Negative); Urine Nitrite ND (Negative); Urine Protein ND (Negative); Urine Urobilinogen ND (Normal); Urine pH ND (5.0-7.0)
[2024-08-04 12:47] LABS: Urine Color ND (Yellow)
[2024-08-04] MEDS ORDERED: NA CHLORIDE 0.9% 250 ML ONE ×2 (13:27→16:55)
[2024-08-04 14:36] LABS: Anion Gap 17.3 mEq/L (5.0-15.0); Potassium 5.3 mEq/L (3.5-5.1)
--- NOTE | 2024-08-05 12:09 | EKG ---
Test Date: 2024-08-04 Test Time: 11:44:53 Gauge Operator: PH MEASUREMENT RESULTS: Intervals: Rate: 75 WI: 144 QRSD: 150 QT: 456 QTc: 509 [place]: P: 50 WI: 144 QRS: 69 T: 92 INTERPRETIVE STATEMENTS: Normal sinus rhythm Left bundle branch block Abnormal ECG Compared to ECG 07/09/2024 15:02:48 Sinus bradycardia no longer present Electronically Signed On 08-05-24 12:07:36 CDT by Cornelius Santos
[2024-08-06 07:44] VITALS: BP 145/76; TEMP 97.8; O2SAT 100
== END 2024-08-04 19:21 | disposition short-term general hospital (02) ==
LOC: ER 08:50
DX: D62 Acute posthemorrhagic anemia (principal); E11.22 Type 2 diabetes mellitus with diabetic chronic kidney disease; N18.9 Chronic kidney disease, unspecified; E87.5 Hyperkalemia; D72.829 Elevated white blood cell count, unspecified; I10 Essential (primary) hypertension
CPT/HCPCS: 96365; 96361; 93005; 87088; 85025; 81001; 87086; 80048 ×2; 36415; 86900; 83735; 86850; 85610; 86901; 80076; 86920 ×2; 87077; 87186; 84484; 83690; 83880; 71250; 74176; 71045; 36430; 51700; 96375; 99285; J7613; J3010; J2405; P9016 ×2; J7050 ×2; J0696